=== PATIENT | male | born 1945 | race Caucasian/White ===

== ENCOUNTER → 2022-01-24 14:45 | Outpatient (BNVA) | payer MEDICARE, SELFPAY | PROVIDERS: PCP Nurse Practitioner Primary Care; Visit Provider Psychiatry & Neurology Neurology | DX: R26.9 Unspecified abnormalities of gait and mobility (principal); R42 Dizziness and giddiness; G25.9 Extrapyramidal and movement disorder, unspecified | CPT/HCPCS: 99202 ==

== ENCOUNTER → 2022-05-03 14:50 | Outpatient (BNVA) | payer MEDICARE, SELFPAY | PROVIDERS: PCP Nurse Practitioner Primary Care; Visit Provider Psychiatry & Neurology Neurology | DX: R26.9 Unspecified abnormalities of gait and mobility (principal); R42 Dizziness and giddiness; G25.9 Extrapyramidal and movement disorder, unspecified; I95.1 Orthostatic hypotension; G23.2 Striatonigral degeneration | CPT/HCPCS: 99212 ==

== ENCOUNTER → 2022-10-30 12:45 | Outpatient (BNVA) | payer MEDICARE, SELFPAY | PROVIDERS: PCP Nurse Practitioner Primary Care; Visit Provider Psychiatry & Neurology Neurology | DX: G23.2 Striatonigral degeneration (principal); I95.1 Orthostatic hypotension; R26.9 Unspecified abnormalities of gait and mobility | CPT/HCPCS: 99212 ==

== ENCOUNTER 2023-05-07 12:19 | Outpatient (AMB) | payer MEDICARE, SELFPAY ==
--- NOTE | 2023-05-07 12:37 | MHC.OFFVIS ---
Intake Vital Signs 05/07/23 12:38 Height 5 ft 8 in Weight 180 lb BMI 27.4 BP 118/68 Blood Pressure Location Rt brachial Position Sitting Respiration 16 Pulse 71 Pulse Source Pulse Oximeter Pulse Oximetry (%) 100 Oxygen Delivery Method Room Air Intake Visit Reasons: 6m follow up Parkinsons-lvm Intake Note: Pt presents to office for his 6 month follow up for Parkinson's disease. Pt states he has been stable, no worsening of symptoms.He denies tremors. Allergies adhesive tape Allergy (Mild, Verified 05/07/23 12:38) Itching HPI HPI Comments History of Present Illness Details 77y/o male comes for follow up.His ELIZABETH scan was positive for parkinsons. He still feels lightheaded No episodes of passing out. he drinks 60 - 72 oz of water a day. His constipation improved with miralax 5-6 days a week .He uses dulcolax and colace . He is doing well with current medications.No hallucinations or falls. Memory is mildly worse. He was recently found to have fluids in his left ear, his PCP is treating with zyrtec but not sure if it is helping. previous history-He had a Triple bypass surgery on Aug 20 2021.Within 2 weeks after surgery he had left leg movements in sleep and was thought that it could be parkinsons.The patient says that he has random left leg jerks . He denies any tremors. He has some memory issues. He has word finding difficulties. He had vivid dreams . Not sure if he had a REM behavior disorder.No depression or anxiety. He noticed a change in voice - softer. He used to sing and stopped 2 years ago. Occasional drooling No swallowing issues. His handwriting is slower and smaller He had 4 falls the first 2 weeks after surgery . He is good with dressing, showering , using utensils. He is slower. 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 [facility] Medical History Obstructive sleep apnea of adult Hyperlipidemia Gout Diabetes CAD (coronary artery disease) CKD (chronic kidney disease) BPH (benign prostatic hyperplasia) Atrial fibrillation Aortic atherosclerosis Surgical History S/P triple vessel bypass History of PTCA Hx of tonsillectomy Family History Mother FH: CVA (cerebrovascular accident) DM (diabetes mellitus) Father No problems noted. Maternal Grandfather No problems noted. Social History Alcohol intake: never Patient Tobacco Use Status: Never used Tobacco Physical Exam Vital Signs: Last Vital Signs Pulse 71 05/07/23 12:38 Resp 16 05/07/23 12:38 BP 118/68 05/07/23 12:38 Pulse Ox 100 05/07/23 12:38 Oxygen Delivery Method Room Air 05/07/23 12:38 BMI result Body Mass Index 27.4 Const General: cooperative, healthy appearing and comfortable Nutritional Appearance: overweight Orientation/consciousness: patient oriented x3 HEENT Head: Yes normal to inspection and Yes normocephalic Face and sinus: Yes normal facial exam Eyes Pupils: Equal, round and reactive pupils present Neck Other: antecollis Neck: Yes normal visual inspection Neuro Other: no tremors very Mild decreased facial expression and blink No tremors FFM and foot taps normal Gait stooped, mild decreased arm swing on the right mild nystagmus - on end gaze General: patient oriented x3 and moves all extremities Cranial nerves: Yes Facial sensation intact/muscles of mastication intact, Yes Equal, round and reactive pupils present, Yes Bilaterally intact EOM present, Yes Normal facial strength present and Yes Midline tongue present Speech: Other speech findings present (Neuro) (mild hypophonia) Gait exam (Neuro): Other gait observations present (stooped, slow , decreased arm swing L>R) Motor exam (neuro): 5/5 motor strength present throughout Coordination: [id number] test normal Psych Affect: normal affect Assessment & Plan Assessment & Plan (1) Orthostatic hypotension: Comment: likley due to parkinsons MSA and medications Code(s): I95.1 - Orthostatic hypotension (2) Parkinson's plus syndrome: Comment: MSA Code(s): G23.2 - Striatonigral degeneration (3) Gait disorder: Code(s): R26.9 - Unspecified abnormalities of gait and mobility Plan Monitor blood pressure Increase fluids- add sports drinks or liquid IV Continue exercise Coding Level of Care Code Est Pt Level 4 (55578) Diagnoses Orthostatic hypotension I95.1 Parkinson's plus syndrome G23.2 Gait disorder R26.9
[2023-05-07 12:38] VITALS: BP 118/68; PULSE 71; RESP 16; O2SAT 100; BMI 27.4
== END 2023-05-07 13:05 | disposition home or self-care (01) ==
PROVIDERS: Visit Provider Psychiatry & Neurology Neurology
DX: I95.1 Orthostatic hypotension (principal); G23.2 Striatonigral degeneration; R26.9 Unspecified abnormalities of gait and mobility
CPT/HCPCS: 99214

== ENCOUNTER → 2023-05-07 12:19 | Outpatient (BNVA) | payer MEDICARE, SELFPAY | PROVIDERS: Visit Provider Psychiatry & Neurology Neurology | DX: G20.A1 Parkinson's disease without dyskinesia, without mention of fluctuations (principal); I95.1 Orthostatic hypotension; G23.2 Striatonigral degeneration; R26.9 Unspecified abnormalities of gait and mobility | CPT/HCPCS: 99212 ==

== ENCOUNTER 2023-10-29 12:17 | Outpatient (AMB) | payer MEDICARE, SELFPAY ==
--- NOTE | 2023-10-29 12:23 | A.OFFVIS_ITS ---
Intake Vital Signs 10/29/23 12:24 Height 5 ft 8 in Weight 181 lb 2 oz BMI 27.5 BP 106/62 Blood Pressure Location Rt brachial Position Sitting Respiration 16 Pulse 88 Pulse Source Palpation Intake Visit Reasons: 6 mnts f/u for Parkinson's-CONF Intake Note: Pt presents to the office for a 6 month follow up for Parkinson's. Still Operator Helper Required: No Allergies adhesive tape Allergy (Mild, Verified 10/29/23 12:23) Itching HPI HPI Comments History of Present Illness Details 78y/o male comes for follow up.His ELIZABETH s can was positive for parkinsons. His lightheadedness improved. No episodes of passing out. he drinks 60 - 72 oz of water a day. He is feeling better sinc ehe marino dthe pacemaker 3 weeks ago. His constipation improved with miralax 5-6 days a week .He uses dulcolax and colace . He is doing well with current medications.No hallucinations or falls. Memory is mildly worse. Previous history-He had a Triple bypass surgery on Aug 20 2021.Within 2 weeks after surgery he had left leg movements in sleep and was thought that it could be parkinsons.The patient says that he has random left leg jerks . He denies any tremors. He has some memory issues. He has word finding difficulties. He had vivid dreams . Not sure if he had a REM behavior disorder.No depression or anxiety. He noticed a change in voice - softer. He used to sing and stopped 2 years ago. Occasional drooling No swallowing issues. His handwriting is slower and smaller He had 4 falls the first 2 weeks after surgery . He is good with dressing, showering , using utensils. He is slower. 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 [facility] Medical History (Updated 10/29/23 @ 12:39 by Connie Hahn MD) Parkinsonism Parkinson's disease with neurogenic orthostatic hypotension Obstructive sleep apnea of adult Hyperlipidemia Gout Diabetes CAD (coronary artery disease) CKD (chronic kidney disease) BPH (benign prostatic hyperplasia) Atrial fibrillation Aortic atherosclerosis Surgical History Status post biventricular cardiac pacemaker insertion S/P triple vessel bypass History of PTCA Hx of tonsillectomy Family History Mother FH: CVA (cerebrovascular accident) DM (diabetes mellitus) Father No problems noted. Maternal Grandfather No problems noted. Social History Alcohol intake: never Patient Tobacco Use Status: Never used Tobacco Physical Exam Vital Signs: Last Vital Signs Pulse 88 10/29/23 12:24 Resp 16 10/29/23 12:24 BP 106/62 10/29/23 12:24 BMI result Body Mass Index 27.5 Const General: cooperative, healthy appearing and comfortable Nutritional Appearance: overweight Orientation/consciousness: patient oriented x3 HEENT Head: Yes normal to inspection and Yes normocephalic Face and sinus: Yes normal facial exam Eyes Pupils: Equal, round and reactive pupils present Neck Other: antecollis Neck: Yes normal visual inspection Neuro Other: no tremors very Mild decreased facial expression and blink No tremors FFM and foot taps normal Gait stooped, mild decreased arm swing on the right mild nystagmus - on end gaze General: patient oriented x3 and moves all extremities Cranial nerves: Yes Facial sensation intact/muscles of mastication intact, Yes Equal, round and reactive pupils present, Yes Bilaterally intact EOM present, Yes Normal facial strength present and Yes Midline tongue present Speech: Other speech findings present (Neuro) (mild hypophonia) Gait exam (Neuro): Other gait observations present (stooped, slow , decreased arm swing L>R) Motor exam (neuro): 5/5 motor strength present throughout Coordination: [id number]-[id number] test normal Psych Affect: normal affect Assessment & Plan Assessment & Plan (1) Parkinson's plus syndrome: Comment: MSA Code(s): G23.2 - Striatonigral degeneration (2) Orthostatic hypotension: Comment: likley due to parkinsons MSA and medications Code(s): I95.1 - Orthostatic hypotension (3) Gait disorder: Code(s): R26.9 - Unspecified abnormalities of gait and mobility Plan Monitor blood pressure Increase fluids- add sports drinks or liquid IV Continue exercise Coding Level of Care Code Est Pt Level 4 (48277) Diagnoses Parkinson's plus syndrome G23.2 Orthostatic hypotension I95.1 Gait disorder R26.9
[2023-10-29 12:24] VITALS: BP 106/62; PULSE 88; RESP 16; BMI 27.5
== END 2023-10-29 12:43 | disposition home or self-care (01) ==
PROVIDERS: PCP Nurse Practitioner Primary Care; Visit Provider Psychiatry & Neurology Neurology
DX: G23.2 Striatonigral degeneration (principal); I95.1 Orthostatic hypotension; R26.9 Unspecified abnormalities of gait and mobility
CPT/HCPCS: 99214

== ENCOUNTER → 2023-10-29 12:17 | Outpatient (BNVA) | payer MEDICARE, SELFPAY | PROVIDERS: PCP Nurse Practitioner Primary Care; Visit Provider Psychiatry & Neurology Neurology | DX: G23.2 Striatonigral degeneration (principal); R26.9 Unspecified abnormalities of gait and mobility; I95.1 Orthostatic hypotension | CPT/HCPCS: 99212 ==

== ENCOUNTER 2024-11-03 13:31 | Outpatient (AMB) | payer MEDICARE, SELFPAY ==
[2024-11-03 13:32] VITALS: BP 110/72; PULSE 82; O2SAT 98; BMI 27.9
--- NOTE | 2024-11-03 13:32 | MHC.OFFVIS ---
Vital Signs 11/03/24 13:32 Height 5 ft 8 in Weight 183 lb 4 oz BMI 27.9 BP 110/72 Blood Pressure Location Rt brachial Position Sitting Pulse 82 Pulse Source Pulse Oximeter Pulse Oximetry (%) 98 Oxygen Delivery Method Room Air Intake Visit Reasons: 1 yr f/u-Conf Intake Note: Patient presents for follow up parkinsons Accompanied by: Spouse Allergies adhesive tape Allergy (Mild, Verified 11/03/24 13:32) Itching Medication List - Last Reconciled 11/03/24 by Connie Hahn MD allopurinol 300 mg PO DAILY apixaban (Eliquis) 5 mg PO BID aspirin (Adult Low Dose Aspirin) 81 mg PO DAILY atorvastatin 40 mg PO DAILY bisacodyl (Dulcolax (bisacodyl)) 10 mg PO BEDTIME cetirizine (Zyrtec) 10 mg PO DAILY PRN docusate sodium (Colace) 100 mg PO BID finasteride 5 mg PO DAILY fluticasone furoate 50 mcg/actuation inhalation metoprolol succinate ER 75 mg PO DAILY nitroglycerin 0.4 mg sublingual polyethylene glycol 3350 (Miralax) 17 grams PO DAILY potassium chloride 20 mEq PO DAILY potassium chloride ER (Klor-Con M) 20 mEq PO DAILY torsemide 10 mg PO DAILY HPI Comments Details: 79y/o male comes for follow up.His ELIZABETH scan was positive for parkinsons.He reports difficulty falling asleep and takes few hrs - 3 am He takes a 2-3 hr nap during daytime. His lightheadedness improved but still has some episodes. No episodes of passing out. he drinks 60 - 72 oz of water a day. He is feeling better since he marino dthe pacemaker 3 weeks ago. His constipation improved with miralax 5-6 days a week .He uses dulcolax and colace . He is doing well with current medications.No hallucinations or falls. Memory is mildly worse. Previous history-He had a Triple bypass surgery on Aug 20 2021.Within 2 weeks after surgery he had left leg movements in sleep and was thought that it could be parkinsons.The patient says that he has random left leg jerks . He denies any tremors. He has some memory issues. He has word finding difficulties. He had vivid dreams . Not sure if he had a REM behavior disorder.No depression or anxiety. He noticed a change in voice - softer. He used to sing and stopped 2 years ago. Occasional drooling No swallowing issues. His handwriting is slower and smaller He had 4 falls the first 2 weeks after surgery . He is good with dressing, showering , using utensils. He is slower. 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 [facility] Medical History (Updated 11/03/24 @ 14:04 by Connie Hahn MD) Insomnia Parkinsonism Parkinson's disease with neurogenic orthostatic hypotension Obstructive sleep apnea of adult Hyperlipidemia Gout Diabetes CAD (coronary artery disease) CKD (chronic kidney disease) BPH (benign prostatic hyperplasia) Atrial fibrillation Aortic atherosclerosis Surgical History Status post biventricular cardiac pacemaker insertion S/P triple vessel bypass History of PTCA Hx of tonsillectomy Family History Mother FH: CVA (cerebrovascular accident) DM (diabetes mellitus) Father No problems noted. Maternal Grandfather No problems noted. Social History Alcohol intake: never Patient Tobacco Use Status: Never used Tobacco Physical Exam Vital Signs: Last Vital Signs Pulse 82 11/03/24 13:32 BP 110/72 11/03/24 13:32 Pulse Ox 98 11/03/24 13:32 Oxygen Delivery Method Room Air 11/03/24 13:32 BMI result Body Mass Index 27.9 Const General: cooperative, healthy appearing and comfortable Nutritional Appearance: overweight Orientation/consciousness: patient oriented x3 HEENT Head: Yes normal to inspection and Yes normocephalic Face and sinus: Yes normal facial exam Eyes Pupils: Equal, round and reactive pupils present Neck Other: antecollis Neck: Yes normal visual inspection Neuro Other: no tremors very Mild decreased facial expression and blink No tremors FFM and foot taps normal Gait stooped, mild decreased arm swing on the right mild nystagmus - on end gaze General: patient oriented x3 and moves all extremities Cranial nerves: Yes Facial sensation intact/muscles of mastication intact, Yes Equal, round and reactive pupils present, Yes Bilaterally intact EOM present, Yes Normal facial strength present and Yes Midline tongue present Speech: Other speech findings present (Neuro) (mild hypophonia) Gait exam (Neuro): Other gait observations present (stooped, slow , decreased arm swing L>R) Motor exam (neuro): 5/5 motor strength present throughout Coordination: [id number] test normal Psych Affect: normal affect Assessment & Plan Assessment & Plan (1) Parkinson's plus syndrome: Comment: MSA Code(s): G23.2 - Striatonigral degeneration Category: Medical (2) Orthostatic hypotension: Comment: likley due to parkinsons MSA and medications Code(s): I95.1 - Orthostatic hypotension Category: Medical (3) Gait disorder: Code(s): R26.9 - Unspecified abnormalities of gait and mobility Category: Medical (4) Insomnia: Code(s): G47.00 - Insomnia, unspecified Category: Medical Qualifiers: Insomnia type: unspecified Qualified Code(s): G47.00 - Insomnia, unspecified Plan Monitor blood pressure Increase fluids- add sports drinks or liquid IV Continue exercise discussed sleep hygiene - avoid daytime naps - regular sleep time Coding Level of Care Code Est Pt Level 4 (06519) Complex EM visit Add On G2211 Diagnoses Parkinson's plus syndrome G23.2 Orthostatic hypotension I95.1 Gait disorder R26.9 Insomnia, unspecified type G47.00 Insomnia type: unspecified
--- OUTSIDE RECORDS SUMMARY | 2024-11-03 16:06 | XMS_ITS | Clinical Summary ---
Author Organization [facility] Address [address] [address] Phone Care Team Providers Care Indexer Name Role Phone Bianka Gutierrez DIRECTOR NICU-C Primary Care Provider + Allergies Active Allergy Reactions Criticality Noted Date Comments Adhesive Tape 09/25/2021 Medications allopurinol (ZYLOPRIM) 300 MG tablet Take 300 mg by mouth 1 (one) time each day Active metoprolol succinate XL (TOPROL XL) 50 MG 24 hr tablet Take 50 mg by mouth 1 (one) time each day Do not crush or chew. Active nitroglycerin (NITROSTAT) 0.[address] 0.4 mg under the tongue every 5 (five) minutes if needed for chest pain Active finasteride (PROSCAR) 5 MG tablet Take 5 mg by mouth daily 0 Active docusate sodium (COLACE) 100 MG capsule Take 100 mg by mouth 2 (two) times a day Active atorvastatin (LIPITOR) 40 MG tablet Take 40 mg by mouth 2 Active aspirin 81 MG chewable tablet Chew 81 mg 1 (one) time each day Active bisacodyl (DULCOLAX) 5 MG EC tablet Take 10 mg by mouth every 3 (three) days Do not crush, chew, or split. Active Multiple Vitamin (multivitamin) tablet Take 1 tablet by mouth 1 (one) time each day Active apixaban (ELIQUIS) 5 MG tablet Take 5 mg by mouth in the morning and 5 mg in the evening. 2 Active fluticasone (FLONASE) 50 MCG/ACT nasal spray Administer 1 spray into each nostril 1 (one) time each day Active cetirizine (ZyrTEC) 5 MG tablet Take 5 mg by mouth 1 (one) time each day Active KLOR-CON 20 MEQ CR tablet Take 20 mEq by mouth 1 (one) time each day Active torsemide (DEMADEX) 5 MG tablet Take 1 tablet (5 mg total) by mouth 1 (one) time each day 90 tablet 3 5 09/21/19 26 Active Active Problems Problem Noted Date Diagnosed Date Ventricular tachycardia 06/05/2024 Secondary hyperparathyroidism 02/02/2024 Sick sinus syndrome 12/03/2023 Overview (08/02/2024): Last Assessment & Plan: Patient underwent implantation of a Medtronic dual-chamber left bundle branch area pacemaker with Dr. Church 10/10/2023 after it was determined that he had a 6.9- second pause which was likely the cause of his dizziness and near syncopal episodes. He has not had any recurrent symptoms. He continues to follow routinely with our device clinic and remote monitoring. Heart failure with normal ejection fraction 11/18 Overview (08/02/2024): Last Assessment & Plan: Patient has history of HFpEF-EF 45 to 50% on last echocardiogram. He feels well and denies any clinical symptoms of heart failure. He is euvolemic on physical examination. He continues on torsemide. No changes to his present medical therapies. Patient advised to seek emergency medical attention by calling 911 if they were to develop severe dyspnea, chest pain that did not resolve with rest or nitroglycerin, or if they were to faint. I've asked the patient to call if they develop worsening symptoms of heart failure such as increased shortness of breath, new or worsening cough, increased swelling in the legs or ankles, or weight gain of more than 2 pounds in one day or 4 pounds in one week. Orthostatic hypotension 12/02/2023 Overview (08/02/2024): Last Assessment & Plan: Patient denies any issues with lightheadedness or dizziness. Blood pressure is well-controlled today. Dysphonia 07/05/2022 Overview (08/02/2024): Hoarseness; Note: Date Diagnosed: 07/05/2022 9:54 AM (R49.0) Parkinson's disease 04/19/2022 08/06/2023 History of coronary artery bypass grafting 02/0508/06/2023 Overview (08/06/2023): [place] [facility] [place] Jessica Martínez [place] [facility] [place] Doreen Verde - Indications: unstable angina Last Assessment & Plan: Patient with history of three-vessel bypass 07/2021. He continues on cardioprotective therapies including metoprolol, aspirin, and atorvastatin. He denies exertional symptoms. His last echocardiogram in February 2022 was unchanged from prior with an LVEF of 45-50%. He was experiencing neuropathy in his chest status post sternotomy. He has having no pain and we will continue to monitor. Obese class II 09/25/2021 Atherosclerotic heart diseas e of [place] coronary artery without angina pectoris 08/31/2021 Benign prostatic hyperplasia without lower urinary tract symptom 08/31/2021 Unstable angina 08/31/2021 Obstructive sleep apnea 07/23/2021 08/06/19 24 Proteinuria, not otherwise specified 11/29/2020 Abdominal aortic atherosclerosis 11/29/2020 Edema 08/30/2020 Atrial fibrillation 08/30/2020 Gout, not otherwise specified 08/30/2020 Stage 3a chronic kidney disease 08/29/2020 Type 2 diabetes mellitus wit h diabetic autonomic (poly)neuropathy 08/29/2020 Hypertension 08/29/2020 Coronary arteriosclerosis 07/11/2020 Overview (05/30/2021): Last Assessment & Plan: This has been stable, He has no signs of ischemia at this time. He will continue to work on diet and exercise. He is uptodate on his cardiovascular testing at this time. We did review his most recent echo. Resolved Problems Problem Noted Date Diagnosed Date Resolved Date Chronic constipation 04/19/2022 08/06/20232 024 High-density lipoprotein deficiency 04/19/202208/0601/30/2024 Small fiber neuropathy 04/19/2022 08/06/202301/29 History of cardiac catheterization 02/05/2022202301/30/2024 Overview (08/06/2023): [place] [facility] [place] with PHILLIP - indications: Afib, CAD, Abn Nuclear perfusion study, Crescendo angina Acute posthemorrhagic anemia 08/31/2021 02/04/2023 Encounter for surgical after care following surgery on the circulatory system 08/31/20212022 Difficulty in walking 08/31/20212022 Generalized muscle weakness 08/31/2021 01/30/2024 Hyperlipidemia 08/31/2021 02/04/2023 Other lack of coordination 08/31/2021 0 01/30/2024 Other symptoms and signs inv olving the musculoskeletal system 08/31/2021 01/30/2024 Pneumonia 08/31/2021 01/30/2024 Type 2 diabetes mellitus without complication 08/31/1901/30/2024 Dizziness 07/11/2020 08/06/2023 01/30/2024 Overview (08/06/2023): Last Assessment & Plan: We did discuss his dizziness. Its unclear what the etiology of this is. He did not worsen when we increase his metoprolol dose from 25-50. His blood pressures and heart rates have been stable. It is likely that this is due to his neuropathy as well as autonomic dysfunction from his Parkinson's. Encounters Date Type Department Care Team Description 09/20/2024 Refill [facility] [address] [phone] Dennys Mon from Last 3 Months Immunizations Immunization Administration Dates Next Due Pfizer SARS-COV-2 04/10/2021,10/18/2020,03,09/21/2020,08/31/2020 Family History Medical History Relation Comments Diabetes Mother Relation Status Comments Mother Social History Tobacco Use Types Packs/Day Years Used Date Smoking Tobacco: Never Smokeless Tobacco: Never Tobacco Cessation:Counseling Given: No Alcohol Use Standard Drinks/Week Comments Not Currently 0 (1 standard drink = 0.6 oz pur e alcohol) Sex and Gender Information Value Date Recorded Sex Assigned at Male 11/28/2020 1:43 PM EDT Legal Sex Male 4:58 PM EST Gender Identity Male 11/28/2020 1:43 PM EDT Sexual Orientation Straight 11/28/2020 1: 43 PM EDT Last Filed Vital Signs Vital Sign Reading Time Taken Comments Blood Pressure 116/85 08/02/2024 9:45 AM EST Pulse 84 08/02/2024 9:45 AM EST Temperature - - Respiratory Rate - - Oxygen Saturation 99% 02/02/2024 10:47 AM EDT Inhaled Oxygen Concentration - - Weight 80.3 kg (177 lb) 08/02/2024 9:45 AM EST Height 172.7 cm (5' 8 ) 08/02/2024 9:45 AM EST Body Mass Index 26.91 08/02/2024 9:45 AM EST Plan of Treatment Upcoming Encounters Date Type Department Care Team (Late st Contact Info) Description 01/31/2025 10:00 AM EDT Office Visit [facility] [address] [phone] Con Rosa MD [address] [phone] Health Maintenance Due Date Last Done Comments Pneumococcal Vaccine: 50+ Ye ars (1 of 2 - PCV) 10/26/1964 Diabetes: Hemoglobin A1C 08/29/2020 Diabetes: Ophthalmology Exam 08/29/2020 Diabetes: Pedal Pulse Checked 08/29/2020 Diabetes: Sensory Foot Exam 08/29/2020 Diabetes: Visual Foot Exam 08/29/2020 Influenza Vaccine (Season Ended) 2025 Hepatitis B Vaccine Aged Out No longe r eligible based on patient's age to complete this topic Insurance [facility] Care Teams Indexer Relationship Specialty Start Date End Date Bianka Gutierrez NP-C [address], [address] [place] [address] PCP - General Nurse Practitioner 08/30/20
--- OUTSIDE RECORDS SUMMARY | 2024-11-03 16:07 | XMS_ITS | Continuity of Care Document ---
Author Organization [facility] [address] [facility] [address] [place] [address] Phone [phone] Care Team Providers Care Swimming Pool Cleaner Name Role Phone Bianka Gutierrez N.P. Care Team Information [facility] [phone] Problems Active Problems Provider Date Essential hypertension Nathalia Crawford Onset: 04/19/2022 Type 2 diabetes mellitus Daisy Weiss M.D. Onset: 04/19/2022 Coronary atherosclerosis Daisy Weiss M.D. Onset: 04/19/2022 Atrial fibrillation Daisy Weiss M.D. Onset: 04/19/2022 Chronic kidney disease stage 3 Daisy roca M.D. Onset: 04/19/2022 Small fiber neuropathy Nathalia Crawford Onset: 04/19/2022 Chronic constipation Beck Crawford Onset: 04/19/2022 Benign prostatic hyperplasia Daisy delacruz M.D. Onset: 04/19/2022 Parkinson's disease Daisy Weiss M.D. Onset: 04/19/2022 Gout Daisy Weiss M.D. Ons et: 04/19/2022 Proteinuria Daisy Weiss M.D. Ons et: 04/19/2022 Obesity Daisy Weiss M.D. Ons et: 04/19/2022 Obstructive sleep apnea syndrome Daisy Ching M.D. Onset: 04/19/2022 High density lipoprotein deficiency Daisy Shah M.D. Onset: 04/19/2022 Social History Type Date Description Comments Sex Unknown Lives With Spouse Occupation insurance sales professional Work Status Retired Tobacco Use Start: Unknown Never Smoked Cigarettes ETOH Use Never used alcohol Allergies and adverse reactions Description No Known Drug Allergies Medications Active Medications SIG Qnty Indications Order ing Provider Date Onetouch VerioStrips use 1 strip to check glucose 1 time weekly DX:E11.9 50units E11.9 Daisy Weiss M.D. 09/11/2023 Onetouch Delica Plus Lancets Extra Fine 33GPlus 33G [facility] use one to test blood sugars once weekly DX: E11.9 50units E11.9 Daisy Weiss M.D. 09/11/2023 Hhkgqkelose7eo Tablets 1 by mouth every day Unknown Kjckrsl6jk Tablets 1 by mouth twice a day Brian Cavazos Potassium ChlorideCrystals 20 meq qd Daisy Weiss M.D. Sixbwhkflfx199af Tablets 1 tab by mouth every morning 90tabs Daisy Weiss M.D. Aspirin Ec Low Ygda08sf Tablets DR Multani by mouth every day Daisy Weiss M.D. Luseli139tc Capsules 1 by mouth bid Daisy Weiss M.D. Multivitamin Adults 50+Adlt 50+ Tablets 1 by mouth every day Daisy Weiss M.D. Skmaxop73UC/Scoop Powder take daily Daisy Weiss M.D. Iuocbzka9mt Tablets 1 by mouth every 3rd day Daisy Weiss M.D. Atorvastatin Brygbik25rw Tablets 1 by mouth every day Daisy Weiss M.D. Metoprolol Succinate ER50mg Tablets ER 24HR 1 by mouth every day 90tabs Daisy Weiss M.D. Fhsefzuie7yl Tablets 1 by mouth every day Daisy Weiss M.D. Zyrtec Yzkwesj64lu Tablets 1 by mouth every day at bedtime Daisy Weiss M.D. Flonase Allergy Xdnsgj21aus/Act Suspension 1 pump both nostrils twice a day as needed 9.900ml Daisy Weiss M.D. Vital Signs Date Vital Result Comment 2023 8:36am BP Systolic 112 mmHg BP Diastolic 78 mmHg Results Test Acquired Date Facility Test Result H/L Range N ote Glucose Fingerstick 2023 Inhouse Glucose Fingerstick 85 Hemoglobin A1c 2023 Inhouse Hemoglobin A1c 5.1% Glucose Fingerstick 04/24/2023 Inhouse Glucose Fingerstick 89 Hemoglobin A1c 04/24/2023 Inhouse Hemoglobin A1c 5.6% Glucose Fingerstick 12/27/2022 Inhouse Glucose Fingerstick 130 Glucose Fingerstick 10/18/2022 Inhouse Glucose Fingerstick 96 Hemoglobin A1c 10/18/2022 Inhouse Hemoglobin A1c 5.6% Glucose Fingerstick 04/19/2022 Inhouse Glucose Fingerstick 111 Hemoglobin A1c 04/19/2022 Inhouse Hemoglobin A1c 5.5% Medical Devices Description No Information Available Encounters Type Date Location Provider Dx Diagnosis Office Visit 2023 8:00a Main Office Daisy Weiss M.D. E11.42 Type 2 diabetes mellitus with diabetic polyneuropathy I10 Essential (primary) hypertension N18.31 Chronic kidney disea se, stage 3a Assessments Date Code Description Provider 2023 E11.42 Type 2 diabetes mellitus with diabetic polyneuropathy Daisy Weiss M.D. 2023 I10 Essential (primary) hyperten sammy Daisy Weiss M.D. 2023 N18.31 Chronic kidney disease, stag e 3a Daisy Weiss M.D. Plan of Treatment Future Appointment(s):* 12/17/2024 9:00 am - Daisy Weiss M.D. at Main Office 2023 - Daisy Weiss M.D.* E11.42 Type 2 diabetes mellitus with diabetic polyneuropathy * I10 Essential (primary) hypertension * N18.31 Chronic kidney disease, stage 3a Functional Status Description No Information Available Mental Status Description No Information Available Referrals Description No Information Available
--- OUTSIDE RECORDS SUMMARY | 2024-11-03 16:07 | XMS_ITS ---
Author Organization [facility] Care Team Providers Care Site Administrator Name Role Phone Wandy Echols Unavailable Unavailable Janet Wagner Unavailable Unavailable Breana Adame Unavailable Unavailable Allergies and adverse reactions Code CodeSystem Substance Reaction Severity StartDate Concern Status Adhesive Tape Unknown 08/31/2021 active Care Team Name Role Address Phone Organization Dates Janet Wagner PCP [address] [facility] [address], [place], [address], [place] (Office): [facility] 08/31/2021 - 09/08/2021 Wandy Echols Attending Physician [address] [address], [place], [address], [place] (Office): [facility] 08/31/2021 - 09/08/2021 Breana Adame Attending Physician [address] [facility] [address], [place], [address], [place] (Office): [facility] 08/31/2021 - 09/08/2021 Immunizations Immunization Status Vaccine Details Vaccine Code CodeSystem Date Notes SARS-COV-2 (COVID-19) completed SARS-COV-2 (COVID-19) vaccine, mRNA, spike protein, LNP, preservative free, 30 mcg/0.3mL dose Mfg: [employer] Step 1 of Multi-step 208 CVX created date: 08/31/2021 administere d date: 04/10/2021 Booster vaccine SARS-COV-2 (COVID-19) completed SARS-COV-2 (COVID-19) vaccine, mRNA, spike protein, LNP, preservative free, 30 mcg/0.3mL dose Mfg: [employer] Step 2 of Multi-step with next step required 208 CVX created date: 08/31/2021 administere d date: 10/18/2020 SARS-COV-2 (COVID-19) completed SARS-COV-2 (COVID-19) vaccine, mRNA, spike protein, LNP, preservative free, 30 mcg/0.3mL dose Mfg: [employer] Step 1 of Multi-step with next step required 208 CVX created date: 08/31/2021 administere d date: 09/27/2020 Mental Status Section Date Assessment Total Score Description 09/08/2021 BIMS 15 cognitively int act CAM 0 No delirium ind icated PHQ-9 01 minimal depress ion 09/05/2021 BIMS 15 cognitively int act CAM 0 No delirium ind icated PHQ-9 01 minimal depress ion Problems Problem # Description Date of onset Resolved Date Code CodeSystem Concern Status 1 ACUTE POSTHEMORRHAGIC ANEMIA 08/31/[address] active 2 ATHEROSCLEROTIC HEART DISEASE OF [place] CORONARY ARTERY WITHOUT ANGINA PECTORIS 08/31/[address] active 3 BENIGN PROSTATIC HYPERPLASIA WITHOUT LOWER URINARY TRACT SYMPTOMS 08/31/[address] active 4 CHRONIC KIDNEY DISEASE, STAGE 3A 08/31/[address] active 5 DIFFICULTY IN WALKING, NOT ELSEWHERE CLASSIFIED 08/31/[address] active 6 ENCOUNTER FOR OTHER SPECIFIED SURGICAL AFTERCARE 08/31/[address] active 7 ENCOUNTER FOR SURGICAL AFTERCARE FOLLOWING SURGERY ON THE CIRCULATORY SYSTEM 08/31/[address] active 8 ESSENTIAL (PRIMARY) HYPERTENSION 08/31/[address] active 9 HYPERLIPIDEMIA, UNSPECIFIED 08/31/[address] active 10 MUSCLE WEAKNESS (GENERALIZED) 08/31/[address] active 11 OTHER LACK OF COORDINATION 08/31/[address] active 12 OTHER SYMPTOMS AND SIGNS INVOLVING THE MUSCULOSKELETAL SYSTEM 08/31/[address] active 13 PNEUMONIA, UNSPECIFIED ORGANISM 08/31/[address] active 14 TYPE 2 DIABETES MELLITUS WITHOUT COMPLICATIONS 08/31/[address] active 15 UNSPECIFIED ATRIAL FIBRILLATION 08/31/[address] active 16 UNSTABLE ANGINA 08/31/[address] active Reason for Referral No Reasons for Referral Entered Social History Social History Observation Description Start Date End Date Code Code System Current Smoking Status Tobacco smoking consumption unknown 190272623 SNOMED CT Sex Assigned At Male 1945 13450-4 [facility] Vital Signs Code Code System Vitals Name Values and Units Timing Information 8462-4 [facility] Blood Pressure-Diastolic Value=69 Un its=mmHg 09/08/2021 8480-6 [facility] Blood Pressure-Systolic Qiauh=205 Un its=mmHg 09/08/2021 9279-1 [facility] Respiratory Rate Value=16.0 Units=/m in 09/08/2021 8310-5 [facility] Body Temperature Value=97.4 Units=?? F 09/08/2021 8867-4 [facility] Heart rate Value=80.0 Units=/min 16442-1 [facility] O2 % dC Oximetry Value=94.0 Units= % 09/08/2021 38774-7 [facility] Pain Level Value=0.0 09/08/2021 2339-0 [facility] Blood Sugar Value=98.0 Units=mg/dL 09/08/2021 87939-9 [facility] Weight Fbvtj=674.6 Units=Lbs 8302-2 [facility] Height Value=68.0 Units=Inches 09/03/2021
--- OUTSIDE RECORDS SUMMARY | 2024-11-03 16:07 | XMS_ITS | Data Portability ---
Author Organization [place] - [facility], Allergy Address [address] [address] Care Team Providers Care Financial Data Analyst Name Role Phone PETERLAURO ESPARZAINE Primary Care Provider Assessment Encounter Date Assessment Date Assessment LastModified by Organization Details LastModified Time 01/19/2024 01/19/2024 Patient's hearing remains essentially stable but devices were reprogrammed anywhere the thresholds were 5 dB worse. Recommend following up in one year for their annual hearing aid fitting, sooner if any problems arise. [email or web address] Not available 01/19/2024 14:11:24 Plan of Treatment Reminders Order Date Submit Date Provider Last Modified By Organization Details Last Modified Time Details Appointments None record ed. Lab None record ed. Referral None record ed. Procedures None record ed. Surgeries None record ed. Imaging None record ed. Medication Orders None record ed. Patient TargetsNo targets recorded. Patient InstructionsNo instructions recorded. Reason for Referral None Reported. Results Created Date Observation Date Name Description Value Unit Range Abnormal Flag Note LastModifiedBy Organization Detail LastModifiedTime 01/19/20 audio gram No observ ation record ed. BARCODE Not Available 2023 15:12:44 03/09/20 24 08/14/2022 imagi ng/di agnos tic resul t No observ ation record ed. [email or web address] Not Available 23:54:40 03/09/20 24 08/14/2022 imagi ng/di agnos tic resul t No observ ation record ed. [email or web address] Not Available 23:54:47 03/09/20 24 04/27/2019 audio gram No observ ation record ed. [email or web address] Not Available 23:55:59 03/09/20 24 05/01/2022 imagi ng/di agnos tic resul t No observ ation record ed. [email or web address] Not Available 23:56:05 03/09/20 24 03/31/2020 audio gram No observ ation record ed. [email or web address] Not Available 23:56:56 03/09/20 24 04/27/2019 audio gram No observ ation record ed. [email or web address] Not Available 23:57:02 03/09/20 24 05/01/2022 audio gram No observ ation record ed. [email or web address] Not Available 23:57:03 Result Notes None recorded. 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 Other diseases of vocal cords; Note: Date Diagnosed : 2 9:54 AM (J38.3) Not Available [facility] 4 03:04:06 Bilateral tinnitus 89672318821 02 Active 2017 Tinnitus, bilateral ; Note: Date Diagnosed : 03/11/2018 11:09 AM (H93.13) Not Available [facility] 4 03:04:06 Dysphonia 73117498 Active 2021 Hoarsenes s; Note: Date Diagnosed : 2 9:54 AM (R49.0) Not Available [facility] 4 03:04:03 Snoring 50181414 Active 2017 Snoring; Note: Date Diagnosed : 03/11/2018 11:09 AM (R06.83) Not Available [facility] 4 03:04:05 Sensorine ural hearing loss of bilateral ears 070793406 Active 2017 Sensorine ural hearing loss, bilateral ; Note: Date Diagnosed : 03/11/2018 10:57 AM (H90.3) Not Available [facility] 4 03:04:05 Parkinson 's disease 78272338 Active 2021 Parkinson 's disease; Note: Date Diagnosed : 2 9:54 AM (G20) Not Available [facility] 4 03:04:04 Bleeding from nose 372931787 Active 2020 Epistaxis ; Note: Date Diagnosed : 09/15/2020 5:04 PM (R04.0) Not Available [facility] 4 03:04:04 Problem Notes None recorded. Procedures Surgical History Date Name Laterality Status Provider Name and Address Organization Details Recorded Time 01/19/2024 Comp Audio with Tymps (78852 & 55383) completed GREGORY WOLFE, [facility] [address] [facility],[address] [address], [place], [address], [facility] - [facility] 01/19/2024 14:10:48 Imaging Results Imaging Date Name Status LastModified by Organiz ation Details LastModified Time 01/19/2024 audiogram completed BARCODE Information no t available 01/19/2024 15:12:44 08/14/2022 imaging/diagno stic result completed Information not available 03/09/2024 23:54:40 08/14/2022 imaging/diagno stic result completed Information not available 03/09/2024 23:54:47 04/27/2019 audiogram completed Information not available 03/09/2024 23:55:59 05/01/2022 imaging/diagno stic result completed Information not available 03/09/2024 23:56:05 03/31/2020 audiogram completed Information not available 03/09/2024 23:56:56 04/27/2019 audiogram completed Information not available 03/09/2024 23:57:02 05/01/2022 audiogram completed Information not available 03/09/2024 23:57:03 Procedure Notes None recorded. Medical Equipment None Reported. Medications Name Sig Start Date Stop Date Status Note LastModified by Organization Details LastModified Time atorvasta tin 40 mg tablet active Medicatio n ID: [id number] Br and Name: atorvasta tin Send Method: E-Prescri bed Subs Allowed: subs OK Medica tionGener icName: atorvasta tin Not Available Not Available Not Available Toprol XL 100 mg tablet,ex tended release 09/15 completed Medicatio n ID: [id number] Du ration Value: 90 Brand Name: Toprol XL Send Method: E-Prescri bed Subs Allowed: subs OK Medica tionGener icName: Toprol XL Not Available Not Available Not Available torsemide 20 mg tablet active Medicatio n ID: [id number] Br and Name: torsemide Send Method: E-Prescri bed Subs Allowed: subs OK Medica tionGener icName: torsemide Not Available Not Available Not Available ciproflox acin 750 mg tablet TAKE 1 TABLET BY MOUTH TWICE A DAY FOR 7 DAYS active Not Available Not Available No t Available atorvasta tin 10 mg tablet 07/05 completed Medicatio n ID: [id number] Br and Name: atorvasta tin Send Method: E-Prescri bed Subs Allowed: subs OK Medica tionGener icName: atorvasta tin Not Available Not Available Not Available metoprolo l succinate ER 50 mg tablet,ex tended release 24 hr active Not Available Not Available Not Available warfarin 2.5 mg tablet 09/15 completed Medicatio n ID: [id number] Du ration Value: 90 Brand Name: warfarin Send Method: E-Prescri bed Subs Allowed: subs OK Medica tionGener icName: warfarin Not Available Not Available Not Available amlodipin e 2.5 mg tablet 09/15 completed Medicatio n ID: [id number] Du ration Value: 90 Brand Name: amlodipin e Send Method: E-Prescri bed Subs Allowed: subs OK Medica tionGener icName: amlodipin e Not Available Not Available Not Available amlodipin e 5 mg tablet 07/05 completed Medicatio n ID: [id number] Br and Name: amlodipin e Send Method: E-Prescri bed Subs Allowed: subs OK Medica tionGener icName: amlodipin e Not Available Not Available Not Available isosorbid e mononitra te ER 60 mg tablet,ex tended release 24 hr 07/05 completed Medicatio n ID: [id number] Br and Name: isosorbid e mononitra te Send Method: E-Prescri bed Subs Allowed: subs OK Medica tionGener icName: isosorbid e mononitra te Not Available Not Available Not Available potassium chloride 20 mEq oral packet active Not Available Not Available Not Available tamsulosi n 0.4 mg capsule 07/05 completed Medicatio n ID: [id number] Br and Name: tamsulosi n Send Method: E-Prescri bed Subs Allowed: subs OK Specia l Instructi on: TAKE 1 CAPSULE BY MOUTH EVERY DAY HALF HOUR FOLLOWING THE SAME MEAL EVERY DAY Medic ationGene ricName: tamsulosi n Not Available Not Available Not Available torsemide 5 mg tablet TAKE 1 TABLET BY MOUTH EVERY DAY active Not Available Not Available No t Available nitroglyc nicolasa 0.4 mg sublingua l tablet 07/05 completed Medicatio n ID: [id number] Br and Name: nitroglyc nicolasa Send Method: E-Prescri bed Subs Allowed: subs OK Specia l Instructi on: PLACE 1 TAB UNDER THE TONGUE EVERY 5 MINUTES NEEDED FOR CHEST PAIN. Med icationGe nericName : nitroglyc nicolasa Not Available Not Available Not Available lisinopri l 30 mg tablet 07/05 completed Medicatio n ID: [id number] Br and Name: lisinopri l Send Method: E-Prescri bed Subs Allowed: subs OK Medica tionGener icName: lisinopri l Not Available Not Available Not Available allopurin ol 300 mg tablet active Not Available Not Available Not Available metformin ER 500 mg tablet,ex tended release 24 hr 07/05 completed Medicatio n ID: [id number] Br and Name: metformin Send Method: E-Prescri bed Subs Allowed: subs OK Medica tionGener icName: metformin Not Available Not Available Not Available doxycycli ne hyclate 100 mg tablet TAKE 1 TABLET BY MOUTH TWICE A DAY FOR 10 DAYS active Not Available Not Available No t Available finasteri de 5 mg tablet active Not Available Not Available Not Available Klor-Con M20 mEq tablet,ex tended release active Not Available Not Available Not Available OneTouch Verio test strips active Not Available Not Available Not Available Eliquis 5 mg tablet active Not Available Not Available No t Available OneTouch Delica Plus Lancet 33 gauge active Not Available Not Available Not Available aspirin 81 mg capsule active Medicatio n ID: [id number] Br and Name: aspirin S end Method: E-Prescri bed Subs Allowed: subs OK Medica tionGener icName: aspirin Not Available Not Available Not Available Vitals None Recorded Social History None recorded. Functional Status None recorded. Mental Status None recorded. Family History Nothing Reported. Medical History No medical history recorded. Past Encounters Encounter ID Performer Location Encounter Start Date Encounter Closed Date Diagnosis/Indication Diagnosis SNOMED-CT Code Diagnosis ICD10 Code Diagnosis Note [id number] Cely JENKINS [facility] of [address] [address] 01/19/2024 14:07:36 01/27/2024 20:44:08 Sensorineural hearing loss of bilateral ears 820007121 H90.3 Health Concerns Section Related Observation LastModified by Organization Detai ls LastModified Time None Recorded Concern Status LastModified by Organization Details LastModified Time None Recorded Advance Directives Directive None Recorded Payers Encounter Date Sequence Insurance Name Policy Number Policy Machado Covered Member ID Machado Member ID Guarantor Name 01/19/2024 1 [facility]: MEDICARE PPO BLUE (MEDICARE REPLACEMENT PPO) [id number] Elbert Weber [id number] Elbert Weber Notes Date Note Type Note Provider Name and Address Organization Details Recorded Time 01/19/2024 text/html Patient returns for their annual fitting of amplification. Reviewed with patient the importance of ensuring that the devices are working to their best potential and to rule out any changes in hearing or need to reprogram the devices. The devices were previously programmed using the Audioscan [email or web address].comifit hearing aid analyzer and real-ear verification was not repeated today. The patient reported no specific concerns and reports satisfaction with use but his family reports that he struggles hearing them. His PCP has put him on Zyrtec and Flonase for allergies. The last time he saw his PCP (weeks ago), he was told he had a little fluid in the left ear. Cely JENKINS [address], [address], [facility] - [facility] 01/19/2024 14:11:51
--- OUTSIDE RECORDS SUMMARY | 2024-11-03 16:07 | XMS_ITS | Encounter Summary ---
Author Organization [facility] Address [address] [place] [address] Care Team Providers Care Induction Machine Setter Name Role Phone Bianka Gutierrez CATEGORY DEVELOPMENT ANALYST Primary Care Provider [phone] Reason for Visit * Reason Onset Date Comments eliquis 10/20/2024 eliquis Encounter Details Date Type Department Care Team (Late st Contact Info) Description 10/20/2024 Telephone [facility] [address] [place] [address] [place] [address] Irene Reeves NP [address] [place] [address] [address] [place], [place] [phone] eliquis (eliquis) Social History Tobacco Use Types Packs/Day Years Used Date Smoking Tobacco: Never Smokeless Tobacco: Never Alcohol Use Standard Drinks/Week Comments Not Currently 0 (1 standard drink = 0.6 oz pur e alcohol) Sex and Gender Information Value Date Recorded Sex Assigned at Not on file Legal Sex Male 11:18 PM EST Gender Identity Not on file Sexual Orientation Not on file documented as of this encounter Progress Notes * Buffy Salinas RN - 10/20/2024 4:00 PM EDT VIKTOR 08/05/24, next 11/18/24 Eliquis refills were sent in yesterday to [facility]. * Jeannette Rebeca - 10/20/2024 3:47 PM EDT Pt called for a refill on apixaban (Eliquis) 5 mg tablet , Take 1 tablet (5 mg total) by mouth 2 (two) times a day. Sent to [facility] He has one week left Ariana documented in this encounter Plan of Treatment Upcoming Encounters Date Type Department Care Team (Late st Contact Info) Description 11/09/2024 2:30 PM EDT Ancillary Procedure [facility] [address] [facility] [address] [place] [address] 11/18/2024 9:10 AM EDT Office Visit [facility] [address] [place] [address] [address] [place] [address] Irene Reeves NP [address] [place] [address] Dr [address] [place] [address] documented as of this encounter Visit Diagnoses Not on filedocumented in this encounter Care Teams Induction Machine Setter Relationship Specialty Start Date End Date Bianka Gutierrez NP [address] [place] [address] PCP - General Nurse Practitioner 06/04/24 documented as of this encounter
--- OUTSIDE RECORDS SUMMARY | 2024-11-03 16:07 | XMS_ITS | Encounter Summary ---
Author Organization [facility] Address [address] [facility] [address] [place] [address] Phone Care Team Providers Care Knowledge Management Consultant Name Role Phone Bianka Gutierrez HAND LAUNDERER-C Primary Care Provider + Encounter Details Date Type Department Care Team (Late st Contact Info) Description 11/27/2020 Orders Only [facility] [address] [facility] [address] [place] [phone] Con Rosa MD [address] [facility] [address] [place] [phone] 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 No / Unsure 11/29/2020 10:54 AM EDT documented as of this encounter Plan of Treatment Upcoming Encounters Date Type Department Care Team (Late st Contact Info) Description 01/31/2025 10:00 AM EDT Office Visit [facility] 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) Essential (primary) hypertension Stage 3b chronic kidney disease (HCC) Gout due to renal impairment, unspecified ankle and foot Atrial fibrillation, not otherwise specified (HCC) Localized edema CBC AND DIFFERENTIAL Routine 11/20/2020 9:57 AM EDT 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) Essential (primary) hypertension Stage 3b chronic kidney disease (HCC) Gout due to renal impairment, unspecified ankle and foot Atrial fibrillation, not otherwise specified (HCC) Localized edema URIC ACID Routine 11/20/2020 9:57 AM EDT 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) Essential (primary) hypertension Stage 3b chronic kidney disease (HCC) Gout due to renal impairment, unspecified ankle and foot Atrial fibrillation, not otherwise specified (HCC) Localized edema PTH, INTACT Routine 11/20/2020 9:57 AM EDT 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) Essential (primary) hypertension Stage 3b chronic kidney disease (HCC) Gout due to renal impairment, unspecified ankle and foot Atrial fibrillation, not otherwise specified (HCC) Localized edema MAGNESIUM Routine 11/20/2020 9:57 AM EDT 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) Essential (primary) hypertension Stage 3b chronic kidney disease (HCC) Gout due to renal impairment, unspecified ankle and foot Atrial fibrillation, not otherwise specified (HCC) Localized edema RENAL FUNCTION PANEL Routine 11/20/2020 9:57 AM EDT 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) Essential (primary) hypertension Stage 3b chronic kidney disease (HCC) Gout due to renal impairment, unspecified ankle and foot Atrial fibrillation, not otherwise specified (HCC) Localized edema PROTEIN / CREATININE RATIO, URINE Routine 11/20/2020 7:00 AM EDT 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) Essential (primary) hypertension Stage 3b chronic kidney disease (HCC) Gout due to renal impairment, unspecified ankle and foot Atrial fibrillation, not otherwise specified (HCC) Localized edema documented in this encounter Results * Vitamin D 25 Hydroxy (11/20/2020 9:57 AM EDT) Vitamin D, 25-Hydroxy 35.9 (20-50) NG/ML [facility] Comment: Testing performed or reported by [facility], a Service of [facility], [address] [place] [address] Gala Bradley MD, Machine Assembler Blood (Blood, Venous) 11/20/2020 9:57 AM EDT 11/20/2020 9:59 AM EDT us Con Rosa MD LAB BLOOD ORDERABLES Final Re sult Performing Organization Address [facility] de Phone Number [facility] * Uric Acid (11/20/2020 9:57 AM EDT) Pathologist [facility] Uric Acid 5.4 (2.6-8.7) MG/DL [facility] Comment: Testing performed or reported by [facility], a Service of [facility], [address] [place] [id number] Gala Bradley MD, Machine Assembler Blood (Blood, Venous) 11/20/2020 9:57 AM EDT 11/20/2020 9:59 AM EDT us Con Rosa MD LAB BLOOD ORDERABLES Final Re sult Performing Organization Address [facility]/ZIP Co de Phone Number [facility] * (ABNORMAL) Renal Function Panel (11/20/2020 9:57 AM EDT) Glucose 103(H) (70-99) MG/DL [facility] BUN 25(H) (8-23) MG/DL [facility] Creatinine 1.5(H) (0.7-1.2) MG/DL [facility] Sodium 143 (133-145) MMOL/L [facility] Potassium 4.0 (3.6-5.2) MMOL/L [facility] Chloride 104 (98-107) MMOL/L [facility] Bicarbonate (CO2) 28 (22-29) MMOL/L [facility] Anion Gap 11 (4-17) [facility] Albumin 4.5 (3.4-4.8) GM/DL [facility] Calcium 9.5 (8.6-10.5) MG/DL [facility] Phosphorus, Serum 3.3 (2.5-4.5) MG/DL [facility] Est GFR Non 46 ML/MIN/1.7 3 M2 [facility] Comment: Creatinine based estimated glomerular filtration rate (eGFR) is calculated using the Chronic Kidney Disease Epidemiology Collaboration (CKD-EPI). The CKD-EPI creatinine equation has not been validated in children (<18 years), women or in some racial or ethnic subgroups other than Caucasians and Americans. EST GFR 53 ML/MIN/1.7 3 M2 [facility] Comment: Creatinine based estimated glomerular filtration rate (eGFR) is calculated using the Chronic Kidney Disease Epidemiology Collaboration (CKD-EPI). The CKD-EPI creatinine equation has not been validated in children (<18 years), women or in some racial or ethnic subgroups other than Caucasians and Americans. Testing performed or reported by [facility], a Service of [facility], [address] [place] [id number] Gala Bradley MD, Machine Assembler Blood (Blood, Venous) 11/20/2020 9:57 AM EDT 11/20/2020 9:59 AM EDT us Con Rosa MD LAB BLOOD ORDERABLES Final Re sult Performing Organization Address [facility] Co de Phone Number [facility] * (ABNORMAL) PTH, Intact (11/20/2020 9:57 AM EDT) [facility] PTH, Intact 114(H) (15-65) PG/ML [facility] Comment: Testing performed or reported by [facility], a Service of [facility], [address] [place] [id number] Gala Bradley MD, Machine Assembler Blood (Blood, Venous) 11/20/2020 9:57 AM EDT 11/20/2020 9:59 AM EDT Con Rosa MD LAB BLOOD ORDERABLES Final Re sult Performing Organization Address [facility] de Phone Number [facility] * Magnesium (11/20/2020 9:57 AM EDT) [facility] Magnesium 1.8 (1.6-2.3) mg/dL [facility] Comment: Testing performed or reported by [facility], a Service of [facility], [address] [place] [id number] Gala Bradley MD, Machine Assembler Blood (Blood, Venous) 11/20/2020 9:57 AM EDT 11/20/2020 9:59 AM EDT Con Rosa MD LAB BLOOD ORDERABLES Final Re sult Performing Organization Address [facility] de Phone Number [facility] * (ABNORMAL) CBC and Differential (11/20/2020 9:57 AM EDT) [facility] White Blood Cells 6.5 (4.0-11.0) K/MM3 [facility] RBC 4.68(L) (4.70-6.10 ) M/MM3 [facility] Hgb 15.1 (13.7-17.1 ) GM/DL [facility] Hematocrit 46.0 (40.5-50.0 ) % [facility] MCV 98.3(H) (80.0-94.0 ) [place] [facility] MCH 32.3 (27.0-34.0 ) PG [facility] MCHC 32.8(L) (33.0-37.0 ) g/dL [facility] Platelets 191 (150-460) K/MM3 [facility] RDW-SD 47.1(H) (<47.0) [place] [facility] MPV 10.9 (9.4-12.4) [place] [facility] nRBC Count 0.0 #/100 WBC'S [facility] NRBC Absolute 0.0 K/MM3 [facility] Neutrophils Abs Auto 3.5 (1.3-7.0) K/MM3 [facility] Lymphocytes Relative 2.3 (0.8-3.1) K/MM3 [facility] Monocytes 0.5 (0.4-1.3) K/MM3 [facility] Eosinophils Relative 0.2 (0.0-0.4) K/MM3 [facility] Basophil ABS 0.1 (0.0-0.1) K/MM3 [facility] Granulocytes Absolute 0.0 K/MM3 [facility] Neutrophils % Auto 53.5 (44-76) % [facility] Lymphs 34.4 (15-43) % [facility] Monocytes Absolute 7.8 (4.5-10.5) % [facility] Eosinophils 2.9 (0-6) % [facility] Basophils Relative 1.1 (0-2) % [facility] Immature Granulocytes 0.3 % [facility] Comment: Testing performed or reported by [facility], a Service of [address] [address] Gala Bradley MD, Machine Assembler Blood (Blood, Venous) 11/20/2020 9:57 AM EDT 11/20/2020 9:59 AM EDT us Con Rosa MD LAB BLOOD ORDERABLES Final Re sult [facility] * Protein, Total, Random Urine w/Creatinine (Protein/Creat Ratio) (11/20/2020 7:00 AM EDT) Protein/Creatin e Ratio 0.11 (0-0.2) [facility] Protein, Urine 5 MG/DL [facility] Creatinine, Urine 43.5 MG/DL [facility] Comment: Testing performed or reported by [facility], a Service of [address] [address] Gala Bradley MD, Machine Assembler Urine (Urine, Clean Catch) 11/20/2020 7:00 AM EDT 11/20/2020 10:00 AM EDT us Con Rosa MD LAB URINE ORDERABLES Final Re sult [facility] documented in this encounter Visit Diagnoses Diagnosis 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
--- OUTSIDE RECORDS SUMMARY | 2024-11-03 16:07 | XMS_ITS | Clinical Summary ---
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 Active fluticasone propionate (FLONASE) 50 mcg/actuation nasal spray Administer 1 spray into affected nostril(s) 1 (one) time each day. Active aspirin 81 mg EC tablet Take 1 tablet (81 mg total) by mouth 1 (one) time each day. Active allopurinoL (ZYLOPRIM) 300 mg tablet Take 1 tablet (300 mg total) by mouth 1 (one) time each day. Active torsemide (DEMADEX) 5 mg tablet Take 1 tablet (5 mg total) by mouth 1 (one) time each day. 05/15/20 23 Active docusate sodium (COLACE) 100 mg capsule Take 1 capsule (100 mg total) by mouth 1 (one) time each day. Active MULTIVITAMIN ORAL Take 1 tablet by mouth 1 (one) time each day. Active potassium chloride (KLOR-CON M20) 20 mEq CR tablet Take 1 tablet (20 mEq total) by mouth 1 (one) time each day. Tablet may be swallowed whole (do not crush/chew/suc k on) OR broken in half and each half swallowed separately OR dissolved (whole tablet) in ~4 ounces of water (allow ~2 minutes to dissolve, stir well and administer immediately). Active bisacodyL (DULCOLAX) 5 mg EC tablet Take 2 tablets (10 mg total) by mouth 1 (one) time each day if needed for constipation. Do not crush, chew, or split. Active polyethylene glycol (PEG) 17 gram/dose oral powder Take 17 g by mouth 1 (one) time each day. Active finasteride (PROSCAR) 5 mg tablet Take 1 tablet (5 mg total) by mouth 1 (one) time each day. Do not crush, chew, or split. Active atorvastatin (LIPITOR) 40 mg tablet Take 1 tablet (40 mg total) by mouth 1 (one) time each day. 90 tablet 3 08/26/19 25 Active metoprolol succinate (TOPROL-XL) 50 mg 24 hr tablet Take 1.5 tablets (75 mg total) by mouth 1 (one) time each day. Do not crush or chew. 90 tablet 2 09/25/19 25 Active apixaban (Eliquis) 5 mg tablet Take 1 tablet (5 mg total) by mouth 2 (two) times a day. 180 tablet 2 10/20/19 25 Active apixaban (Eliquis) 5 mg tablet Take 1 tablet (5 mg total) by mouth 2 (two) times a day. 12/25/19 24 025 Discontinued Active Problems Problem Noted Date Diagnosed Date Ventricular tachycardia ([facility] V24, [facility] V2 8) 06/05/2024 Assessment & Plan (06/05/2024 8:31 PM EST): Patient with episode of nonsustained ventricular tachycardia in November none since. Reported in January because there is interrogation scheduled. She said no palpitations no lightheadedness or dizziness. No further episodes since November of this year SSS (sick sinus syndrome) ([facility] V24, [facility] V28) 12/03/2023 Overview (05/08/2024): Last Assessment & Plan: Patient underwent implantation of a Medtronic dual-chamber left bundle branch area pacemaker with Dr. Church 10/10/2023 after it was determined that he had a 6.9- second pause which was likely the cause of his dizziness and near syncopal episodes. He has not had any recurrent symptoms. He continues to follow routinely with our device clinic and remote monitoring. Assessment & Plan (08/05/2024 9:46 AM EST): Patient underwent implantation of a Medtronic dual-chamber left bundle branch area pacemaker with Dr. Church 10/10/2023 after it was determined that he had a 6.9- second pause which was likely the cause of his dizziness and near syncopal episodes. He continues to follow routinely with our device clinic and remote monitoring. Will evaluate for any recurrence of NSVT. (HFpEF) heart failure with p reserved ejection fraction (CMS/HCC V24, CMS/HCC V28) 12/02/2023 Overview (05/08/2024): Last Assessment & Plan: Patient has history [...] day or 4 pounds in one week. Assessment & Plan (06/05/2024 8:31 PM EST): Patient with a history of hypertension coronary disease status post multiple stents and three-vessel bypass in 2021. Postop A-fib renal insufficiency. Echo shows an EF of 45 to 50% with a dilated left atrium reduced right ventricular systolic function. In 09/09/2023 is admitted with episode of near syncope was found of a 6.9-second pause and a permanent pacemaker is been placed. An episode nonsustained ventricular tachycardia in January and none since History of pacemaker 12/02/2023 Pre-syncope 12/02/2023 Orthostatic hypotension 12/02/2023 Overview (05/08/2024): Last Assessment & Plan: Patient denies any issues with lightheadedness or dizziness. Blood pressure is well-controlled today. Edema 07/24/2022 Overview (05/08/2024): Last Assessment & Plan: we did discuss his leg edema. He like to try 5 mg of furosemide every day as opposed to 10 mg alternating every other day. He will call me in a week to let me know how he does on the 5 mg once daily. If he does end up on this dose then we will check a Chem-7 S/P CABG x 3 02/05/2022 Overview (05/08/2024): Done at [facility] [place] on [place]/31/21 with Jessica Martínez Done at [facility] [place] on 08/20/21 with Doreen Verde - Indications: [...] pain and we will continue to monitor. 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 This is at goal. Continue with present dose of atorvastatin as prescribed. Assessment & Plan (08/05/2024 9:46 AM EST): Patient continues on atorvastatin 40 mg daily. Update lipid panel. Orders: Lipid panel; Future Obesity 09/03/2021 Atrial fibrillation ([facility] V24, [facility] V28) 0 07/23/2021 Overview (05/08/2024): Last Assessment & Plan: Patient is history of atrial fibrillation with intermittent atrial flutter. He remains asymptomatic from this and his heart rate is well-controlled. He continues on Eliquis for anticoagulation and metoprolol for rate control. He denies any palpitations. Assessment & Plan (08/05/2024 9:46 AM EST): Patient with history of paroxysmal atrial fibrillation. ECG today showing underlying atrial flutter. [id number] score of 6, he continues on anticoagulation with Eliquis 5 mg twice daily and is tolerating this well. Orders: ECG 12 lead Assessment & Plan (06/05/2024 8:31 PM EST): History of tachybradycardia syndrome A-fib is rate controlled and anticoagulated pacemaker in place for bradycardia arrhythmia pacemaker show 1 episode of nonsustained VT Diabetes mellitus ([facility] V24, [facility] V28) 09/2021 Obstructive sleep apnea 07/23/2021 CAD (coronary artery disease) 07/11/2020 Overview (05/08/2024): Last Assessment & Plan: Patient has history of coronary artery disease status post multiple stenting procedures in the past and CABG surgery in 2021. He is feeling well and denies any exertional anginal symptoms. He continues on cardioprotective medical therapy with aspirin, beta-samantha and statin. I have reviewed with the patient the importance of a heart healthy lifestyle which includes eating a low-fat low-salt diet, getting regular exercise, maintaining a healthy weight, not smoking, and following up with routine medical care. Assessment & Plan (08/05/2024 9:46 AM EST): Patient has history of coronary artery disease status post multiple stenting procedures in the past and CABG surgery in 2021. He is reporting left lower chest discomfort with exertion hence we will update a nuclear stress test. He continues on cardioprotective medical therapy with aspirin, beta-samantha and statin. Patient advised to seek emergency medical attention by calling 911 if they were to develop severe dyspnea, chest pain that did not resolve with rest or nitroglycerin, or if they were to faint. Orders: Transthoracic echocardiogram (TTE) complete with PRN contrast, bubble, strain, and 3D order panel; Future Nuclear stress test with myocardial perfusion; Future Lipid panel; Future Dizziness 07/11/2020 Overview (05/08/2024): Last Assessment & Plan: We did discuss his dizziness. Its unclear what the etiology of this is. He did not worsen when we increase his metoprolol dose from 25-50. His blood pressures and heart rates have been stable. It is likely that this is due to his neuropathy as well as autonomic dysfunction from his Parkinson's. HTN (hypertension) 07/11/2020 Overview (05/08/2024): Last Assessment & Plan: Patient's blood pressure is under excellent control with a reading today of 122/80. Continue with all therapies as prescribed. Assessment & Plan (08/05/2024 9:46 AM EST): Blood pressure is well-controlled today 120/70, he comes with a blood pressure log also showing excellent control at home. Continue on current antihypertensive medication regimen. I have reviewed with the patient the importance of a heart healthy lifestyle which includes eating a low-fat low-salt diet, getting regular exercise, maintaining a healthy weight, not smoking, and following up with routine medical care. Hypercholesterolemia 07/11/2020 Overview (05/08/2024): Last Assessment & Plan: Patient's last LDL cholesterol is 33. This is at goal. Continue with present dose of atorvastatin as prescribed. Encounters Date Type Department Care Team Description 10/22/2024 4:25 PM EDT Ancillary Procedure [facility] - [address] [place] [address] 10/20/2024 Telephone [facility] [address] [place] [address] Irene Reeves NP eliquis (eliquis) 10/15/2024 10:30 AM EDT Ancillary Procedure [facility] - [address] [place] [address] Coronary artery disease involving red devil heart with angina pectoris, unspecified vessel or lesion type (CMS/HCC V24); HFrEF (heart failure with reduced ejection fraction) (CMS/HCC V24, CMS/HCC V28) 08/26/2024 Telephone [facility] [address] [place] [address] Irene Reeves NP Med Refill 08/20/2024 7:30 AM EST Ancillary Procedure [facility] - [address] [place] [address] Coronary artery disease involving red devil heart with angina pectoris, unspecified vessel or lesion type (CMS/HCC V24); Chest discomfort 08/17/2024 8:50 AM EST Ancillary Procedure [facility] - [address] [place] [address] 08/17/2024 Telephone [facility] - [address] [place] [address] Sugey Powers PA 08/05/2024 8:40 AM EST Office Visit [facility] [address] [place] [address] Emely Brooke NP Paroxysmal atrial fibrillation (CMS/HCC V24, CMS/HCC V28) (Primary Dx); Coronary artery disease involving red devil heart with angina pectoris, unspecified vessel or lesion type (CMS/HCC V24); HFrEF (heart failure with reduced ejection fraction) (CMS/HCC V24, CMS/HCC V28); Hyperlipidemia, unspecified hyperlipidemia type; Hypertension, unspecified type; SSS (sick sinus syndrome) ([facility] V24, [facility] V28); Chest discomfort from Last 3 Months Immunizations Name Administration Dates Next Due Pfizer SARS-CoV-2 COVID-19, mRNA, LNP-S, preservative free 09/21/2020,08/31/2020 Surgical History Surgery Date Site/Laterality Comments CARDIAC CATHETERIZATION CORONARY STENT PLACEMENT Medical History Medical History Date Comments BPH (benign prostatic hyperplasia) CKD (chronic kidney disease), stage II Class 2 obesity Gout Left arm pain Obesity Family History Medical History Relation Name Comments Heart attack Father Diabetes Mother Stroke Mother Relation Name Status Comments Father Mother Social History Tobacco Use Types Packs/Day Years Used Date Smoking Tobacco: Never Smokeless Tobacco: Never Tobacco Cessation:Counseling Given: Not Answered Alcohol Use Standard Drinks/Week Comments Not Currently 0 (1 standard drink = 0.6 oz pur e alcohol) Sex and Gender Information Value Date Recorded Sex Assigned at Not on file Legal Sex Male 11:18 PM EST Gender Identity Not on file Sexual Orientation Not on file Obstetrics History Last Filed Vital Signs Vital Sign Reading Time Taken Comments Blood Pressure 136/78 10/15/2024 2:01 PM EDT Pulse 95 08/05/2024 8:21 AM EST Temperature - - Respiratory Rate - - Oxygen Saturation 100% 08/05/2024 8:21 AM EST Inhaled Oxygen Concentration - - Weight 83 kg (183 lb) 10/15/2024 2:01 PM EDT Height 172.7 cm (5' 8 ) 10/15/2024 2:01 PM EDT Body Mass Index 27.83 10/15/2024 2:01 PM EDT Plan of Treatment Upcoming Encounters Date Type Department Care Team (Late st Contact Info) Description 11/09/2024 2:30 PM EDT Ancillary Procedure [facility] - [address] [place] [id number] 11/18/2024 9:10 AM EDT Office Visit [facility] - [address] [facility] [address] [place] [id number] Irene Reeves NP [address] [place] [address] [address] [place] [address] Health Maintenance Due Date Last Done Comments Diabetes: Annual Foot Exam 10/26/1955 Diabetes: Annual Retina Eye Exam 10/26/1955 DTaP,Tdap,and Td Vaccines (1 - Tdap) 10/26/1962 Pneumococcal Vaccine: 50+ Years (1 of 2 - PCV) 10/26/1962 Zoster Vaccines (1 of 2) 10/26/1993 Depression Screening 06/26/2022 Falls Risk Assessment 06/26/2022 Medicare Annual Wellness Visit 06/26/2022 Social Influencers of Health Screening 06/26/2022 Diabetes: Annual Urine Albumin-Creatinine Ratio (uACR) 07/05/2022 Diabetes: Blood Sugar Control Test (HGBA1C) 07/05/2022 Diabetes: Annual GFR (Glomerular Filtration Rate) 07/27/2025 07/27/2024, 07/27/2024, 01/12/2024, Additional history exists Hypertension/CHF/CAD Annual BMP Blood Test 07/27/2025 07/27/2024, 07/27/2024, 01/12/2024, Additional history exists Cholesterol Screening (Lipid Panel) 08/17/2029 08/17/2024 COVID-19 Vaccine Completed 03/25/2024, , 11/08/2022, Additional history exists Influenza Vaccine Completed 03/25/2024, , 04/01/2022, Additional history exists RSV Immunization Adult Patients Completed 03/25/2024 HIB Vaccines Aged Out No longer eligi ble based on patient's age to complete this topic HPV Vaccines Aged Out No longer eligi ble based on patient's age to complete this topic Hepatitis A Vaccines Aged Out No long er eligible based on patient's age to complete this topic Hepatitis B Vaccines Aged Out No long er eligible based on patient's age to complete this topic IPV Vaccines Aged Out No longer eligi ble based on patient's age to complete this topic MMR Vaccines Aged Out No longer eligi ble based on patient's age to complete this topic Meningococcal ACWY Vaccine Aged Out N o longer eligible based on patient's age to complete this topic Meningococcal B Vaccine Aged Out No l onger eligible based on patient's age to complete this topic RSV Immunization Patients Under 20 months Aged Out No longer eligible based on patient's age to complete this topic Varicella Vaccines Aged Out No longer eligible based on patient's age to complete this topic Medical Devices Implanted Type Area Striper Device Identifier Shelf Expiration Date Model / Serial / Lot Medt-Card Beti Xt Dr Simms [id number] Implanted: (Quantity not on file) Cardiac Pacemaker [employer] - CARDIAC RHYTH-CRDM BETI XT DR SIMMS [id number] / [id number] / Procedures Procedure Name Priority Date/Time Associated Diagnosis Comments CARDIAC DEVICE CHECK- REMOTE- MURJ Routine 10/22/2024 4:21 PM EDT TRANSTHORACIC ECHOCARDIOGRAM (TTE) COMPLETE Routine 10/15/2024 11:15 AM EDT Coronary artery disease involving red devil heart with angina pectoris, unspecified vessel or lesion type (CMS/HCC V24) HFrEF (heart failure with reduced ejection fraction) (CMS/HCC V24, CMS/HCC V28) NM LEXISCAN STRESS TEST W/ MYOCARDIAL PERFUSION Routine 08/20/2024 10:14 AM EST Coronary artery disease involving red devil heart with angina pectoris, unspecified vessel or lesion type (CMS/HCC V24) Chest discomfort LIPID PANEL Routine 08/17/2024 9:57 AM EST Coronary artery disease involving red devil heart with angina pectoris, unspecified vessel or lesion type (CMS/HCC V24) Hyperlipidemia, unspecified hyperlipidemia type CARDIAC DEVICE CHECK- REMOTE- MURJ Routine 08/17/2024 8:49 AM EST ECG 12-LEAD Routine 08/05/2024 9:46 AM EST Paroxysmal atrial fibrillation (CMS/HCC V24, CMS/HCC V28) from Last 3 Months Results * Cardiac device check - Remote- MURJ (10/22/2024 4:21 PM EDT) Only the most recent of2 resultswithin the time period is included. Date Time Interrogation Session [id number] CV DEVICE CHECK Type Interrogation Session Remote CV DEVICE CHECK Implantable Pulse Generator Striper MDT CV DEVICE CHECK Implantable Pulse Generator Type IPG CV DEVICE CHECK Implantable Pulse Generator Model Beti XT DR MRI [id number] CV DEVICE CHECK Implantable Pulse Generator Serial Number [id number] CV DEVICE CHECK Implantable Pulse Generator Implant Date 20231010 CV DEVICE CHECK Battery Remaining Longevity 170.0 CV DEVICE CHECK Battery Voltage 3.180 CV D EVICE CHECK Battery FINISHER HOT STRIP Trigger 2.625 CV DEVICE CHECK Battery Status Middle of Service CV DEVICE CHECK Scottie Statistic RA Percent Paced 0.00 CV DEVICE CHECK Scottie Statistic RV Percent Paced 82.90 CV DEVICE CHECK Atrial Tachy Statistic AT/AF [place] Percent 1.10 CV DEVICE CHECK Lead Channel Sensing Intrinsic Amplitude 0.250 CV DEVICE CHECK Lead Channel Setting Sensing Sensitivity 0.30 CV DEVICE CHECK Lead Channel Impedance Value 532 CV DEVICE CHECK Lead Channel Sensing Intrinsic Amplitude 18.625 CV DEVICE CHECK Lead Channel Setting Sensing Sensitivity 0.90 CV DEVICE CHECK Lead Channel Impedance Value 741 CV DEVICE CHECK Lead Channel Pacing Threshold Amplitude 0.625 CV DEVICE CHECK Lead Channel Pacing Threshold Pulse Width 0.4 CV DEVICE CHECK Lead Channel RV Pacing Threshold Date 2024-05-10 CV DEVICE CHECK Lead Channel Setting Pacing Amplitude 2.000 CV DEVICE CHECK Lead Channel Setting Pacing Pulse Width 0.4 CV DEVICE CHECK Scottie Setting Mode (NBG Code) VVIR CV DEVICE CHECK Scottie Setting Lower Rate Limit 60 CV DEVICE CHECK Scottie Setting Maximum Sensor Rate 130 CV DEVICE CHECK Zone Setting Type Category AT/AF CV DEVICE CHECK Rate 171 CV DEVICE CHECK Therapies Some Rx Off CV DEVIC E CHECK Zone Setting Status Monitor CV DEVICE CHECK Zone ID 2 CV DEVICE CHECK Zone Setting Type Category VT CV DEVICE CHECK Rate 150 CV DEVICE CHECK Zone Setting Status ENABLED CV DEVICE CHECK Zone ID 6 CV DEVICE CHECK Date of Service 2024-05-20 CV DEVICE CHECK Anatomical Region Laterality Modality Device Interroga tion 05/10/2024 6:44 AM EDT Impressions 05/10/2024 12:57 PM EDT Tachycardia: VT * Stored EGMs are consistent with or suggestive of Ventricular Tachycardia * Total episodes: 1 *15 Beats 05-04-24 Narrative Procedure Note uSgey Powers PA - 10/22/2024 IMPRESSION: Tachycardia: VT * Stored EGMs are consistent with or suggestive of VentricularTachycardia * Total episodes: 1 *15 Beats -15-24 us Sugey Powers JOSÉ MIGUEL CV IMPLANTABLE CARDIAC DEVICE GA OCEDURES Final Result * (ABNORMAL) TRANSTHORACIC ECHOCARDIOGRAM (TTE) COMPLETE (10/15/2024 11:15 AM EDT) LV EDV (A2C) 86 mL CV PACS LV EDV (A4C) 86 mL CV PACS LV Diastolic Volume (BP) 86 62 - 150 mL CV PACS LV ESV (A2C) 46 mL CV PACS LV ESV (A4C) 42 mL CV PACS LV Systolic Volume (BP) 46 21 - 61 mL CV PACS IVSD 1.0 0.6 - 1.0 cm CV PACS LVIDD 4.9 4.2 - 5.8 cm CV PACS LVIDS 3.9 2.5 - 4.0 cm CV PACS LVOT Diameter 2.2 cm CV PACS LVOT Mean Gunnar 0.4 m/s CV PACS LVOT Mean Grad 1 mmHg CV PACS LVOT Mean Grad 1 mmHg CV PACS LVOT Peak VTI 12.4 cm CV PACS LVOT Peak Gunnar 0.7 m/s CV PACS LVOT Peak Gradient 2 mmHg CV PACS LVPWD 1.0 0.6 - 1.0 cm CV PACS MV E' Tissue Velocity Lateral 13 cm/s CV PACS MV E' Tissue Velocity Septal 9 cm/s CV PACS Ejection Fraction (A2C) 47 % CV PACS Ejection Fraction (A4C) 51 % CV PACS Ejection Fraction (BP) 47 % CV PACS LVOT Area 3.8 cm2 CV PACS LVOT Stroke Volume 47 mL CV PACS Left Atrium Minor [place] 6.8 cm CV PACS Left Atrium Major [place] 7.0 cm CV PACS LA Area Sys (A2C) 34 cm2 CV PACS LA Area Sys (A4C) 33 cm2 CV PACS LA Volume (BP) 135 mL CV PACS LA Size 5.6 cm CV PACS RA Area 24.6 cm2 CV PACS RA 2D Volume 89 mL CV PACS Aortic Sinus Valsalva 3.8 cm CV PACS IVC Proximal 1.9 cm CV PACS MR PISA Nyquist Gunnar 36 cm/s CV PACS PISA MR Radius 0.80 cm CV PACS MV Mean Gradient 1 mmHg CV PACS MV Mean Gradient 1 mmHg CV PACS MV Mean Gradient 1 mmHg CV PACS MV Mean Gradient 1 mmHg CV PACS MV Mean Gradient 1 mmHg CV PACS MR VTI 163.0 cm CV PACS MV VTI 13.2 cm CV PACS MR PISA Max Velocity 4.3 m/s CV PACS MR Peak Gradient 75 mmHg CV PACS Mitral Valve Max Velocity 0.9 m/s CV PACS MV Peak Gradient 3 mmHg CV PACS MV Deceleration Norman 8.7 m/s2 CV PACS E Wave Deceleration Time 102(A) 119 - 242 ms CV PACS MV PHT 30 ms CV PACS MV Peak E Gunnar 0.75 m/s CV PACS PISA MR EROA 0.34 cm2 CV PACS MV Area PHT 7.3 cm2 CV PACS MV Area Continuity Equation 3.6 cm2 CV PACS PISA Regurgitant Volume 55 mL CV PACS PV Acceleration Time 211 ms CV PACS PV Mean Gradient 1 mmHg CV PACS PV VTI 13.2 cm CV PACS PV Peak Velocity 0.5 m/s CV PACS PV Peak Gradient 1 mmHg CV PACS RV Diastolic Basal Dimension 5.5(A) 2.5 - 4.1 cm CV PACS RV S' 6 cm/s CV PACS TAPSE 12 mm CV PACS TR Peak Velocity 1.98 m/s CV PACS TR Peak Gradient 16 mmHg CV PACS E/E' Ratio Septal 8 CV PACS E/E' Ratio Averaged 7 CV PACS Relative Wall Thickness ratio 0.41 CV PACS FS 20 % CV PACS LV Mass 2D 176 g CV PACS MV VTI:LVOT VTI ratio 1.1 CV PACS LVOT flow 152 mL/s CV PACS E/E' Ratio Lateral 6 CV PACS BSA 2 m2 CV PACS LV Diastolic Volume Index (BP) 44 34 - 74 mL/m2 CV PACS LV Systolic Volume Index (BP) 23 11 - 31 mL/m2 CV PACS LV EDV Index (A4C) 44 mL/m2 CV PACS LV ESV Index (A4C) 21 mL/m2 CV PACS LV EDV Index (A2C) 44 mL/m2 CV PACS LV ESV Index (A2C) 23 mL/m2 CV PACS LA Volume Index (BP) 69 mL/m2 CV PACS LVIDD Index 2.49 cm/m2 CV PACS LVIDS Index 1.98 cm/m2 CV PACS LV Mass Index 2D 89 50 - 102 g/m2 CV PACS LVOT Stroke Index 24 mL/m2 CV PACS LA Dimension Index 2D 2.8 cm/m2 CV PACS RA 2D Volume Index 45(A) 18 - 32 mL/m2 CV PACS Right Ventricular Peak Systolic Pressure 19 mmHg CV PACS Est. RA Pressure 3 mmHg CV PACS Anatomical Region Laterality Modality Ultrasound Narrative 10/17/2024 5:41 PM EDT ?Left ventricle cavity size is normal. Left ventricular systolic function is mildly decreased with an ejection fraction of 45-50%.. ?? Patient appears to be in atrial flutter ?Mild LV global hypokinesis is present. Regional LV wall motion abnormalities noted. See wall scoring diagram. ?Left ventricle wall thickness is normal. ?Abnormal left ventricular septal motion consistent with right ventricular pacing. ?Right ventricle cavity is moderately enlarged. ??There is reduced right ventricular systolic function ?Aortic valve leaflets are mildly thickened. ??No significant stenosis identified ?Moderate to mildly severe mitral insufficiency is present ?Compared to previous study dated 03/09/2022. ??Ejection fraction is unchanged. ??Mitral regurgitation seems to be a little bit worse Left Ventricle Left ventricle cavity size is normal. Wall thickness is normal. Systolic function is mildly decreased with an ejection fraction of 45-50%. Mild global LV hypokinesis is present. There is abnormal septal motion consistent with right ventricular pacing. Right Ventricle Right ventricle cavity is moderately dilated. A pacer wire is present in the right ventricle. Left Atrium Left atrium cavity is severely dilated. Right Atrium Right atrium cavity is severely dilated. IVC/SVC Inferior vena cava structure is normal. RA pressures is estimated to be 3 mmHg (IVC diameter <21 mm and decreases >50% during inspiration). Mitral Valve The leaflets are mildly thickened. There is mild annular calcification. There is mild regurgitation with a centrally directed jet. There is no evidence of mitral valve stenosis. Tricuspid Valve Tricuspid valve structure is normal. There is no significant regurgitation. The right ventricular systolic pressure is normal. Aortic Valve The aortic valve is trileaflet. The leaflets are mildly thickened. There is no regurgitation or stenosis. Pulmonic Valve There is no pulmonic valve regurgitation. Ascending Aorta The aorta was not well visualized. Pericardium Pericardium appears normal. There is no pericardial effusion. Study Details Overall the study quality was adequate. Wall Scoring Baseline Score Index: 2.00 The following segments are hypokinetic: basal inferoseptal and basal inferior. Other segments could not be evaluated. us Emely Brooke NP CV ECHO PROCEDURES Final Resul t * NM LEXISCAN STRESS TEST W/ MYOCARDIAL PERFUSION (08/20/2024 10:14 AM EST) Exercise/inject ion duration (min) 0 CV PACS STRESS Exercise/inject ion duration (sec) 46 CV PACS STRESS Peak SBP 104 mmHg CV PACS STRESS Peak DBP 60 mmHg CV PACS STRESS Peak HR 98 bpm CV PACS STRESS Baseline HR 88 bpm CV PACS STRESS Baseline SBP 100 mmHg CV PACS STRESS Baseline DBP 66 mmHg CV PACS STRESS Estimated workload 1.0 METS CV PACS STRESS Percent HR 70 % CV PACS STRESS Rate Pressure Product 10,192.0 mmHg*bpm CV PACS STRESS Target HR 119 bpm CV PACS STRESS O2 sat rest 99 % CV PACS STRESS Max HR Percent 70 % CV PA CS STRESS ST Depression (mm) 0 mm CV PACS STRESS BSA 2 m2 CV PACS STRESS TID 0.91 CV PACS STRESS Nuc Stress EF 56 % CV PAC S STRESS Nuc Rest EF 55 % CV PACS STRESS Anatomical Region Laterality Modality Nuclear Medicine 08/20/2024 8:28 AM EST 08/20/2024 9:02 AM EST Narrative 08/20/2024 5:45 PM EST Raw Images and CineLoop Images: Motion artifact noted. ??Hands are on both side. Myocardial perfusion raw images revealed small in size, moderate in intensity hypoperfusion of the apex and stress images which partially improves in the rest images suggestive of small infarct of the apex with ella-infarct ischemia. ??Raw images also revealed some hypoperfusion of the basal inferior wall and the rest images which improves in stress images suggestive of artifacts. ??When attenuation correction is applied, this perfusion defect persist predominantly in the apex at stress images ??which mostly improves on the rest images suggestive of apical infarct with ella-infarct ischemia. ??Gated SPECT images revealed hypokinesis of the apex. Impression: 1. ??Positive Regadenosone stress test with nuclear imaging. ?? 2. The patient had no chest pain during the test. 3. EKG at baseline was normal sinus rhythm, no ischemic EKG changes at stress. 4. LV Cavity size is normal. 5. ??No transient ischemic dialatation (TID 0.91) 6, CT scan showed diffuse calcification of the coronary arteries. 7. Raw perfusion imgaes revelaed small in size, moderate in intensity hypoperfusion of the apex at stress which predominantly improves at rest suggestive of small apical scar with large ella-infarct ischemia. ??When attenuation correction is applied, this perfusion defect persists in the apex and stress images which predominantly improves in the rest images once again suggesting a small scar with large ella-infarct ischemia. 8. Gated SPECT imaging was performed which demonstrated hypokinesis of the apex with a calculated LVEF of 56% at stress and 55% at rest. Stress Findings A pharmacological stress test was performed using regadenoson, 0.4 mg IV over 10-15 seconds, followed by radiopharmacological injection 10 seconds post infusion. Total stress time was 0 min and 46 sec. The patient reached the end of the protocol. Blood pressure demonstrated a normal response. Heart rate demonstrated a normal response. The patient reported no symptoms during the stress test. ECG 78 yo male with history of atrial fibrillation, hypertension, coronary artery disease, hyperlipidemia, diabetes, chronic kidney disease, obstructive sleep apnea, obesity and atrial fibrillation referred for exertional chest discomfort and shortness of breath. The ECG shows normal sinus rhythm. The ECG axis is normal. There were no arrhythmias during stress. There is no ST segment changes during stress. There were no arrhythmias during recovery. The result of the stress ECG was negative for ischemia. Nuclear Study Quality Study technique: MPI, SPECT, multi, rest and stress, 1 day. Overall image quality is good. No radiopharmaceutical dose was extravasated. The time from injection to rest imaging is 30 mins. The time from injection to stress imaging is 40 mins. Stress Function Comments Stress ejection fraction is 56%. Rest Function Comments Resting ejection fraction was 55%. us Emely Brooke NP CV STRESS PROCEDURES Final Res ult * (ABNORMAL) Lipid panel (08/17/2024 9:57 AM EST) Cholesterol Total 92(L) 100 - 199 mg/dL [facility] Triglycerides 50 0 - 149 mg/dL [facility] 1 HDL Cholesterol 50 >39 mg/dL [facility] 1 VLDL Cholesterol Calculated 13 5 - 40 mg/dL [facility] 1 LDL Chol Calc (NIH) 29 0 - 99 mg/dL [facility] 1 Blood Venous blood specimen / Unknown 08/17/2024 9:57 AM EST 08/17/2024 Narrative [facility] 1 - 08/18/2024 2:06 AM EST Performed at: ??01 - [facility] [address] ??[id number] Anodizing Line Operator: Coral Phillips MD, Phone: ??[phone] us Emely Brooke BASEBALL PLAYER LAB BLOOD ORDERABLES Final Res ult Performing Organization Address City/[facility] Co de Phone Number [facility] 1 * ECG 12 lead (08/05/2024 9:46 AM EST) Ventricular Rate ECG 95 BPM [facility] Atrial Rate 95 BPM [facility] P-R Interval 248 ms [facility] QRS Duration 104 ms [facility] Q-T Interval 384 ms GEMUSE QTc 482 ms GEMUSE P Wave [place] -82 degrees GEMUSE R [place] 96 degrees GEMUSE T [place] -25 degrees G[facility] ECG Interpretation Sinus rhythm with long 1st degree AV Block Rightward axis Possible Inferior TN Abnormal ECG No previous ECGs available Confirmed by Shaquille CEVALLOS JAMES ([id number]) on 08/06/2024 4:55:58 PM [facility] 08/05/2024 8:32 AM EST 08/06/2024 4:55 PM EST us Irene Reeves BASEBALL PLAYER ECG ORDERABLES Edited Resul t - Final Performing Organization Address City/State/[facility] Co de Phone Number [facility] from Last 3 Months Insurance [employer] - [place] MEDICARE ADVANTAGE Care Teams Wet Plant Operator Relationship Specialty Start Date End Date Bianka Gutierrez NP [address] [place] [address] PCP - General Nurse Practitioner 06/04/24
== END 2024-11-03 14:16 | disposition home or self-care (01) ==
LOC: HO.HSMS 13:32
PROVIDERS: PCP Nurse Practitioner Primary Care; Visit Provider Psychiatry & Neurology Neurology
DX: G23.2 Striatonigral degeneration (principal); I95.1 Orthostatic hypotension; R26.9 Unspecified abnormalities of gait and mobility; G47.00 Insomnia, unspecified
CPT/HCPCS: 99214; G2211

== ENCOUNTER → 2024-11-03 13:31 | Outpatient (BNVA) | payer MEDICARE, SELFPAY | PROVIDERS: PCP Nurse Practitioner Primary Care; Visit Provider Psychiatry & Neurology Neurology | DX: G23.2 Striatonigral degeneration (principal); G47.00 Insomnia, unspecified; I95.1 Orthostatic hypotension; R26.9 Unspecified abnormalities of gait and mobility | CPT/HCPCS: 99212 ==

== ENCOUNTER 2025-02-08 14:12 | Outpatient (AMB) | payer MEDICARE, SELFPAY ==
--- NOTE | 2025-02-08 14:07 | A.OFFVIS_ITS ---
Intake Visit Reasons: 3 mo follow up Intake Note: Trouble falling asleep at night Normalizer Required: No Accompanied by: Self / Same As Patient Allergies adhesive tape Allergy (Mild, Verified 02/08/25 14:09) Itching Medication List - Last Reconciled 02/08/25 by Connie Hahn MD allopurinol 300 mg PO DAILY apixaban (Eliquis) 5 mg PO BID aspirin (Adult Low Dose Aspirin) 81 mg PO DAILY atorvastatin 40 mg PO DAILY bisacodyl (Dulcolax (bisacodyl)) 10 mg PO BEDTIME cetirizine (Zyrtec) 10 mg PO DAILY PRN docusate sodium (Colace) 100 mg PO BID finasteride 5 mg PO DAILY fluticasone furoate 50 mcg/actuation inhalation metoprolol succinate ER 75 mg PO DAILY nitroglycerin 0.4 mg sublingual polyethylene glycol 3350 (Miralax) 17 grams PO DAILY potassium chloride 20 mEq PO DAILY potassium chloride ER (Klor-Con M) 20 mEq PO DAILY torsemide 12.5 mg PO DAILY HPI Comments Details: 79y/o male calls for follow up. He is sleeping better at night - especially if he does not nap during daytime. Now he naps 12- 1pm 3 times a week after his cardiac rehab. His ELIZABETH scan was positive for parkinsons. His lightheadedness improved but still has some episodes. No episodes of passing out. he drinks 60 - 72 oz of water a day. He is feeling better since he had the pacemaker few mths ago . His constipation improved with miralax 5-6 days a week .He uses dulcolax and colace . He is doing well with current medications.No hallucinations or falls. Memory is mildly worse. Previous history-He had a Triple bypass surgery on Aug 20 2021.Within 2 weeks after surgery he had left leg movements in sleep and was thought that it could be parkinsons.The patient says that he has random left leg jerks . He denies any tremors. He has some memory issues. He has word finding difficulties. He had vivid dreams . Not sure if he had a REM behavior disorder.No depression or anxiety. He noticed a change in voice - softer. He used to sing and stopped 2 years ago. Occasional drooling No swallowing issues. His handwriting is slower and smaller He had 4 falls the first 2 weeks after surgery . He is good with dressing, showering , using utensils. He is slower. 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 [facility] Medical History Insomnia Parkinsonism Parkinson's disease with neurogenic orthostatic hypotension Obstructive sleep apnea of adult Hyperlipidemia Gout Diabetes CAD (coronary artery disease) CKD (chronic kidney disease) BPH (benign prostatic hyperplasia) Atrial fibrillation Aortic atherosclerosis Surgical History Status post biventricular cardiac pacemaker insertion S/P triple vessel bypass History of PTCA Hx of tonsillectomy Family History Mother FH: CVA (cerebrovascular accident) DM (diabetes mellitus) Father No problems noted. Maternal Grandfather No problems noted. Social History Alcohol intake: never Patient Tobacco Use Status: Never used Tobacco Telehealth Telehealth Telehealth Platform: Telephone Location of provider rendering services: practice address Location of patient: address on file Patient Identification confirmed using: Name, : Yes Telehealth method: voice only Patient verbally consented to treatment: Yes Patient verbally consented to billing insurance company: Yes Patient informed of any privacy concerns related to visit: Yes Assessment & Plan Assessment & Plan (1) Parkinson's plus syndrome: Comment: MSA Code(s): G23.2 - Striatonigral degeneration Category: Medical (2) Orthostatic hypotension: Comment: likley due to parkinsons MSA and medications Code(s): I95.1 - Orthostatic hypotension Category: Medical (3) Gait disorder: Code(s): R26.9 - Unspecified abnormalities of gait and mobility Category: Medical (4) Insomnia: Code(s): G47.00 - Insomnia, unspecified Category: Medical Qualifiers: Insomnia type: unspecified Qualified Code(s): G47.00 - Insomnia, unspecified Plan Monitor blood pressure- has been good since last visit 105-115/55-65 Increase fluids- add sports drinks or liquid IV Continue exercise discussed sleep hygiene - avoid daytime naps - regular sleep time Coding Level of Care Code Tele Est Pt Level 4 (95641) Diagnoses Parkinson's plus syndrome G23.2 Orthostatic hypotension I95.1 Gait disorder R26.9 Insomnia, unspecified type G47.00 Insomnia type: unspecified Time Spent (min) 20
--- OUTSIDE RECORDS SUMMARY | 2025-02-08 15:28 | XMS_ITS | Clinical Summary ---
Author Organization [facility] Address [address] [address] Phone Care Team Providers Care Park Ranger Name Role Phone Bianka Gutierrez RECOVERY ENGINEER-C Primary Care Provider + Allergies Active Allergy [...] by mouth 1 (one) time each day Take 5 mg daily in addition to your 10 mg pills for total daily dose of 15 mg a day 90 tablet 5 02/01/20 26 Active torsemide (DEMADEX) 5 MG tablet Take 1 tablet (5 mg total) by mouth 1 (one) time each day 90 tablet 3 5 02/01/20 25 Discontinu ed(Reorder (does not appear on AVS)) Active Problems Problem Noted Date Diagnosed Date [...] bypass grafting 02/0508/06/2023 Overview (08/06/2023): [place] [facility] Jessica Martínez [place] [facility] [place] with Doreen Verde - Indications: [...] II 09/25/2021 Atherosclerotic heart diseas e of [place] coronary artery without angina pectoris 08/31/2021 Benign [...] Diagnosed Date Resolved Date Chronic constipation 04/19/2022 08/06/2023 024 High-density lipoprotein deficiency 04/19/202208/0601/30/2024 Small fiber neuropathy 04/19/2022 08/06/202301/29 History of cardiac catheterization 02/05/2022202301/30/2024 Overview (08/06/2023): [place] [facility] [place] with PHILLIP - indications: Afib, [...] Encounters Date Type Department Care Team Description 01/31/2025 10:00 AM EDT Office Visit [facility] [address] [place] [phone] Con Rosa MD Stage 3a chronic kidney disease (HCC) (Primary Dx); 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); Ventricular tachycardia, not otherwise specified (HCC); Secondary hyperparathyroidism (HCC); Proteinuria, not otherwise specified; Parkinson's disease, not otherwise specified (HCC); Orthostatic hypotension; Heart failure with normal ejection fraction (HCC); Gout, not otherwise specified; Atrial fibrillation, not otherwise specified (HCC) 01/30/2025 Orders Only [facility] [address] [id number] Con Rsoa MD Stage 3a chronic kidney disease (HCC); Proteinuria, not otherwise specified; Hypertension; Gout, not otherwise specified; Localized edema; Atrial fibrillation, not otherwise specified (HCC); Atherosclerotic heart disease of [place] coronary artery without angina pectoris, not otherwise specified; Abdominal aortic atherosclerosis (HCC) from Last 3 Months Immunizations Immunization Administration Dates Next Due Pfizer SARS-COV-2 04/10/2021,10/18/2020,09/28/19,09/21/2020,08/31/2020 Family History Medical History Relation Comments Diabetes [...] Sign Reading Time Taken Comments Blood Pressure 105/70 01/31/2025 9:44 AM EDT Pulse 68 01/31/2025 9:44 AM EDT Temperature - - Respiratory Rate - - Oxygen Saturation 95% 01/31/2025 9:44 AM EDT Inhaled Oxygen Concentration - - Weight 83.6 kg (184 lb 3.2 oz) 01/31/2025 9:44 A M EDT Height 172.7 cm (5' 8 ) 08/02/2024 9:45 AM EST Body Mass Index 28.01 08/02/2024 9:45 AM EST Plan of Treatment Upcoming Encounters Date Type Department Care Team (Late st Contact Info) Description 08/01/2025 9:40 AM EST Office Visit [facility] [address] [phone] Con Rosa MD [address] [phone] Health Maintenance Due Date Last Done Comments Pneumococcal Vaccine: 50+ Ye ars (1 of 2 - PCV) 10/26/1964 Diabetes: Hemoglobin A1C 08/29/2020 Diabetes: Ophthalmology Exam 08/29/2020 Diabetes: Pedal Pulse Checked 08/29/2020 Diabetes: Sensory Foot Exam 08/29/2020 Diabetes: Visual Foot Exam 08/29/2020 Influenza Vaccine (#1) 2025 Hepatitis B Vaccine Aged Out No longe r eligible based on patient's age to complete this topic Procedures Procedure Name Priority Date/Time Associated Diagnosis Comments PTH, INTACT Routine 01/24/2025 9:29 AM EDT MAGNESIUM Routine 01/24/2025 9:29 AM EDT PHOSPHATE ( PHOSPHORUS) Routine 01/24/2025 9:29 AM EDT URIC ACID Routine 01/24/2025 9:29 AM EDT VITAMIN D 25 HYDROXY Routine 01/24/2025 9:29 AM EDT PROTEIN / CREATININE RATIO, URINE Routine 01/24/2025 9:29 AM EDT COMPREHENSIVE METABOLIC PANEL Routine 01/24/2025 9:29 AM EDT CBC AND DIFFERENTIAL Routine 01/24/2025 9:29 AM EDT from Last 3 Months Results * Protein, Total, Random Urine w/Creatinine (Protein/Creat Ratio) (01/24/2025 9:29 AM EDT) Creatinine, Ur 75.5 Not Estab. mg/dL [facility] Protein, Ur 6.9 Not Estab. mg/dL [facility] Urine Protein/Creatin ine Ratio 91 0 - 200 mg/g creat [facility] 01/24/2025 9:29 AM EDT 01/24/2025 Con Rosa MD LAB URINE ORDERABLES Final Re sult [facility] [address] [place] [address] * Vitamin D 25 Hydroxy (01/24/2025 9:29 AM EDT) Vitamin D, 25-OH, Total 36.6 30.0 - 100.0 ng/mL [facility] Comment: Vitamin D deficiency has been defined by the [place] of Medicine and an Endocrine Society practice guideline as a level of serum 25-OH vitamin D less than 20 ng/mL (1,2). The Endocrine Society went on to further define vitamin D insufficiency as a level between 21 and 29 ng/mL (2). 1. IOM ([place] of Medicine). 2010. Dietary reference intakes for calcium and D. [place]: The National Academies Press. 2. Priya MF, Kody NC, Glendy-Manuel CORNEJO, et al. Evaluation, treatment, and prevention of vitamin D deficiency: an Endocrine Society clinical practice guideline. JCEM. 2010; 96(7):1911-30. 01/24/2025 9:29 AM EDT 01/24/2025 Con Rosa MD LAB BLOOD ORDERABLES Final Re sult [facility] [address] [place] [address] * (ABNORMAL) CBC and Differential (01/24/2025 9:29 AM EDT) WBC 7.2 3.4 - 10.8 x10E3/uL [facility] RBC 4.21 4.14 - 5.80 x10E6/uL [facility] Hemoglobin 13.6 13.0 - 17.7 g/dL [facility] Hematocrit 41.7 37.5 - 51.0 % [facility] MCV 99(H) 79 - 97 fL [facility] MCH 32.3 26.6 - 33.0 pg [facility] MCHC 32.6 31.5 - 35.7 g/dL [facility] RDW 13.0 11.6 - 15.4 % [facility] Platelets 152 150 - 450 x10E3/uL [facility] Neutrophils Relative 56 Not Estab. % [facility] Lymphocytes Relative 32 Not Estab. % [facility] Monocytes 8 Not Estab. % [facility] Eosinophils Relative 3 Not Estab. % [facility] Basophils Relative 1 Not Estab. % [facility] Neutrophils Absolute 4.0 1.4 - 7.0 x10E3/uL [facility] Lymphocytes Absolute 2.3 0.7 - 3.1 x10E3/uL [facility] Monocytes Absolute 0.6 0.1 - 0.9 x10E3/uL [facility] Eosinophils Absolute 0.2 0.0 - 0.4 x10E3/uL [facility] Basophils Absolute 0.1 0.0 - 0.2 x10E3/uL [facility] Immature Granulocytes 0 Not Estab. % [facility] Immature Grans (Absolute) 0.0 0.0 - 0.1 x10E3/uL [facility] 01/24/2025 9:29 AM EDT 01/24/2025 us Con Rosa MD LAB BLOOD ORDERABLES Final Re sult Performing Organization Address [facility] Co de Phone Number [facility] [address] [place] [address] * Uric Acid (01/24/2025 9:29 AM EDT) Uric Acid 3.9 3.8 - 8.4 mg/dL [facility] Comment:Therapeutic target f or gout patients: <6.0 01/24/2025 9:29 AM EDT 01/24/2025 us Con Rosa MD LAB BLOOD ORDERABLES Final Re sult Performing Organization Address [facility] Co de Phone Number [facility] [address] [place] [address] * Phosphorus (01/24/2025 9:29 AM EDT) Phosphorus 3.4 2.8 - 4.1 mg/dL [facility] 01/24/2025 9:29 AM EDT 01/24/2025 us Con Rosa MD LAB BLOOD ORDERABLES Final Re sult Performing Organization Address [facility]/ZIP Co de Phone Number [facility] [address] [place] [address] * (ABNORMAL) PTH, Intact (01/24/2025 9:29 AM EDT) PTH 103(H) 15 - 65 pg/mL [facility] 01/24/2025 9:29 AM EDT 01/24/2025 Con Rosa MD LAB BLOOD ORDERABLES Final Re sult Performing Organization Address [facility]/ZIP Co de Phone Number [facility] [address] [place] [address] * Magnesium (01/24/2025 9:29 AM EDT) Pathologist [facility] Magnesium 2.1 1.6 - 2.3 mg/dL [facility] 01/24/2025 9:29 AM EDT 01/24/2025 Con Rosa MD LAB BLOOD ORDERABLES Final Re sult Performing Organization Address [facility] Co de Phone Number [facility] [address] [place] [address] * (ABNORMAL) Comprehensive Metabolic Panel (01/24/2025 9:29 AM EDT) Pathologist [facility] Glucose 95 70 - 99 mg/dL [facility] BUN 34(H) 8 - 27 mg/dL [facility] Creatinine 1.57(H) 0.76 - 1.27 mg/dL [facility] eGFR CKD-EPI CR 2020 44(L) >59 mL/min/1.7 3 [facility] BUN/Creatinine Ratio 22 10 - 24 [facility] Sodium 142 134 - 144 mmol/L [facility] Potassium 3.8 3.5 - 5.2 mmol/L [facility] Chloride 102 96 - 106 mmol/L [facility] Bicarbonate (CO2) 23 20 - 29 mmol/L [facility] Calcium 9.3 8.6 - 10.2 mg/dL [facility] Total Protein 6.8 6.0 - 8.5 g/dL [facility] Albumin 4.2 3.7 - 4.7 g/dL [facility] Globulin 2.6 1.5 - 4.5 g/dL [facility] Total Bilirubin 0.8 0.0 - 1.2 mg/dL [facility] Alkaline Phosphatase 70 44 - 121 IU/L [facility] AST (SGOT) 33 0 - 40 IU/L [facility] ALT (SGPT) 43 0 - 44 IU/L [facility] 01/24/2025 9:29 AM EDT 01/24/2025 Con Rosa MD LAB BLOOD ORDERABLES Final Re sult [facility] [address] [place] [address] from Last 3 Months Insurance [facility] Care Teams Park Ranger Relationship Specialty Start Date End Date Bianka Gutierrez NP-C [address], [address] [place] [address] PCP - General Nurse Practitioner 08/30/20
--- OUTSIDE RECORDS SUMMARY | 2025-02-08 15:28 | XMS_ITS | Clinical Summary ---
Author Organization [facility] Address [address] [place] [address] Phone Care Team Providers Care Box Office Clerk Name Role Phone Bianka Gutierrez NP Primary Care Provider [phone] Allergies Active Allergy Reactions Criticality Noted Date [...] Active torsemide (DEMADEX) 5 mg tablet Take 2.5 tablets (12.5 mg total) by mouth 1 (one) time each day. 5 Active docusate sodium (COLACE) 100 mg capsule Take 1 capsule (100 mg total) by mouth 1 (one) time each day. Active MULTIVITAMIN ORAL Take 1 tablet by mouth 1 (one) time each day. Active potassium chloride (KLOR-CON M20) 20 mEq CR tablet Take 1 tablet (20 mEq total) by mouth 1 (one) time each day. Tablet may be swallowed whole (do not crush/chew/suck on) OR broken in half and each [...] (one) time each day. 90 tablet 3 5 Active metoprolol succinate (TOPROL-XL) 50 mg 24 hr tablet Take 1.5 tablets (75 mg total) by mouth 1 (one) time each day. Do not crush or chew. 90 tablet 2 5 Active apixaban (Eliquis) 5 mg tablet Take 1 tablet (5 mg total) by mouth 2 (two) times a day. 180 tablet 2 5 Active Active Problems Problem Noted Date Diagnosed Date Ventricular tachycardia ([facility] V24, [facility] V2 8) 06/05/2024 Assessment & Plan (06/05/2024 8:31 PM EST): Patient with episode of nonsustained ventricular tachycardia in November none since. Reported in January because there is interrogation scheduled. She said no palpitations no lightheadedness or dizziness. No further episodes since November of this year SSS (sick sinus syndrome) (CMS/HCC V24, CMS/HCC V28) 12/03/2023 Overview (11/18/2024): Assessment & Plan (11/18/2024 10:55 AM EDT): Patient underwent implantation of a Medtronic dual-chamber [...] pounds in one week. Assessment & Plan (11/18/2024 1:22 PM EDT): Patient has history of HFmrEF. Recent echocardiogram showing an EF of 45 to 50%. Patient does not present with any clinical symptoms of heart failure and appears euvolemic on physical examination. He will continue on his present dose of torsemide 10 mg once a day. Patient advised to seek emergency medical attention [...] and none since History of pacemaker 12/02/2023 Assessment & Plan (11/18/2024 10:55 AM EDT): Continue with remote monitoring and routine visits to our device clinic. S/P CABG x 3 02/05/2022 Overview (05/08/2024): [place] [facility] [place] with Jessica Martínez [place] [facility] [place] with Doreen Verde - Indications: [...] continue to monitor. Atherosclerosis of abdominal aorta ([facility] V24) 09/03/2021 Chronic kidney disease, stage 2 (mild) Overview (05/08/2024): stable GFR CKD (chronic kidney disease) stage 3, GFR 30-59 ml/min ([facility] V24, CMS/HCC V28) 09/03/2021 Diabetes mellitus with chron ic kidney disease ([facility] V24, [facility] V28) 09/03/2021 HLD (hyperlipidemia) 09/03/2021 Assessment & Plan (11/18/2024 10:55 AM EDT): Patient's last LDL cholesterol was 29. Continue statin as prescribed. Assessment & Plan (08/05/2024 9:46 AM EST): Patient continues on atorvastatin 40 mg daily. Update lipid panel. Orders: Lipid panel; Future Obesity 09/03/2021 Atrial fibrillation ([facility] V24, [facility] V28) 0 07/23/2021 Overview (11/18/2024): Assessment & Plan (11/18/2024 1:22 PM EDT): Patient is history of atrial fibrillation with intermittent atrial flutter. He remains asymptomatic from this and his heart rate is well-controlled. His THP2XN3-SZSg score is 6. He continues on Eliquis for anticoagulation and metoprolol for rate control. He denies any palpitations. Assessment & Plan (08/05/2024 9:46 AM EST): Patient with history of paroxysmal atrial fibrillation. ECG today showing underlying atrial flutter. QGD5NB1-KSFb score of 6, he continues on anticoagulation with Eliquis 5 mg twice daily and is tolerating this well. Orders: ECG 12 lead Assessment & Plan (06/05/2024 8:31 PM EST): History of tachybradycardia syndrome A-fib is rate controlled and anticoagulated pacemaker in place for bradycardia arrhythmia pacemaker show 1 episode of nonsustained VT Diabetes mellitus ([facility] V24, [facility] V28) 09/2021 Obstructive sleep apnea 07/23/2021 CAD [...] with routine medical care. Assessment & Plan (11/18/2024 12:05 PM EDT): Patient has history of coronary artery disease status post multiple stenting procedures in the past and CABG surgery in 2021. Nuclear stress test as outlined in detailed above. Reviewed with Dr. Carver. No changes when compared to previous nuclear stress test completed in the past. Patient is asymptomatic. He continues on cardioprotective medical therapy with aspirin, beta-samantha and statin. No additional testing necessary at this time. Continue with medical therapy as prescribed. I have reviewed with the patient the [...] all therapies as prescribed. Assessment & Plan (11/18/2024 1:22 PM EDT): Blood pressure under good control with a reading today of 98/60. He denies any lightheadedness or dizziness. No changes to his medical therapies at this time. Assessment & Plan (08/05/2024 9:46 AM EST): [...] and following up with routine medical care. Resolved Problems Problem Noted Date Diagnosed Date Resolved Date Pre-syncope 12/02/2023 11/18/2024 Orthostatic hypotension 12/02/2023 05/0 07/2024 Overview (05/08/2024): Last Assessment & Plan: Patient denies any issues with lightheadedness or dizziness. Blood pressure is well-controlled today. Edema 07/24/2022 11/18/2024 Overview (05/08/2024): Last Assessment & Plan: we [...] dose then we will check a Chem-7 Hypercholesterolemia 07/11/2020 025 Assessment & Plan (11/18/2024 1:22 PM EDT): Last LDL cholesterol 29. Continue with atorvastatin as prescribed. Encounters Date Type Department Care Team Description 01/13/2025 Telephone [facility] [address] [place] [address] Irene Reeves NP Weight Gain 01/07/2025 Telephone [facility] [address] [place] [address] Irene Reeves NP Results 11/18/2024 9:10 AM EDT Office Visit [facility] [address] [place] [address] Irene Reeves NP Coronary artery disease involving or[place]ar[place]iut coronary artery of or[place]ararmiut heart without angina pectoris (Primary Dx); Chronic heart failure with preserved ejection fraction (CMS/HCC V24, CMS/HCC V28); Atrial fibrillation, unspecified type (CMS/HCC V24, CMS/HCC V28); Primary hypertension; SSS (sick sinus syndrome) (CMS/HCC V24, CMS/HCC V28); Mixed hyperlipidemia; History of pacemaker; Hypercholesterolemia 11/12/2024 4:15 PM EDT Ancillary Procedure [facility] [address] [place] [address] 11/09/2024 2:30 PM EDT Ancillary Procedure [facility] [address] [place] [address] Encounter for adjustment or management of cardiac device from Last 3 Months Immunizations Name Administration [...] Sign Reading Time Taken Comments Blood Pressure 98/68 11/18/2024 8:53 AM EDT Pulse 72 11/18/2024 8:53 AM EDT Temperature - - Respiratory Rate - - Oxygen Saturation 98% 11/18/2024 8:53 AM EDT Inhaled Oxygen Concentration - - Weight 83 kg (183 lb) 11/18/2024 8:53 AM EDT Height 172.7 cm (5' 8 ) 11/18/2024 8:53 AM EDT Body Mass Index 27.83 11/18/2024 8:53 AM EDT Plan of Treatment Upcoming Encounters Date Type Department Care Team (Late st Contact Info) Description 05/23/2025 7:40 AM EST Office Visit [facility] [address] [place] [phone] Irene Reeves NP [address] [place] [address] [address] [place] [address] 11/14/2025 10:00 AM EDT Ancillary Procedure [facility] [address] [facility] [address] [place] [id number] Health Maintenance Due Date Last Done Comments Diabetes: Annual Foot Exam 10/26/1955 Diabetes: Annual Retina Eye Exam 10/26/1955 DTaP,Tdap,and Td Vaccines (1 - Tdap) 10/26/1962 Pneumococcal Vaccine: 50+ Years (1 of 2 - PCV) 10/26/1962 Zoster Vaccines (1 of 2) 10/26/1962 Falls Risk Assessment 06/26/2022 Medicare Annual Wellness Visit 06/26/2022 Social Influencers of Health Screening 06/26/2022 Diabetes: Annual Urine Albumin-Creatinine Ratio (uACR) 07/05/2022 Diabetes: Blood Sugar Control Test (HGBA1C) 07/05/2022 Depression Screening 07/21/2024 COVID-19 Vaccine (10 - Pfizer risk season) 2024 03/25/2024, 04/09/2023, 11/08/2022, Additional history exists Influenza Vaccine (#1) 2025 , 03/31/2023, 04/01/2022, Additional history exists Diabetes: Annual GFR (Glomerular Filtration Rate) 07/27/2025 07/27/2024, 07/27/2024, 01/12/2024, Additional history exists Hypertension/CHF/CAD Annual BMP Blood Test 07/27/2025 07/27/2024, 07/27/2024, 01/12/2024, Additional history exists Cholesterol Screening (Lipid Panel) 08/17/2029 08/17/2024 RSV Immunization Adult Patients Completed 03/25/2024 HIB [...] this topic Medical Devices Implanted Type Area Private Investigator Surveillance Device Identifier Shelf Expiration Date Model / Serial / Lot Medt-Card [place] Xt Dr Simms [id number] Implanted:09/19 by Mirna Church MD (Quantity not on file) Cardiac Pacemaker Left: Chest MEDTRONIC - CARDIAC RHYTH-CRDM BETI XT DR SIMMS [id number] / [id number] / Medt-Card Beti Xt Dr Simms [id number] Implanted:09/19 (Quantity not on file) Cardiac Pacemaker MEDTRONIC - CARDIAC RHYTH-CRDM BETI XT DR SIMMS / [id number] / Procedures Procedure Name Priority Date/Time Associated Diagnosis Comments ECG 12-LEAD Routine 11/18/2024 1:22 PM EDT Atrial fibrillation, unspecified type (CMS/HCC V24, CMS/HCC V28) CARDIAC DEVICE CHECK- REMOTE- MURJ Routine 11/12/2024 4:12 PM EDT CARDIAC DEVICE CHECK- IN CLINIC- MURJ Routine 11/09/2024 2:44 PM EDT Encounter for adjustment or management of cardiac device LIPID PANEL Routine 08/17/2024 9:57 AM EST Coronary artery disease involving or[place]ar[place]iut heart with angina pectoris, unspecified vessel or lesion type ([facility] V24) Hyperlipidemia, unspecified hyperlipidemia type from Last 3 Months or Most Recently Relevant to Health Maintenance Results * ECG 12 lead (11/18/2024 1:22 PM EDT) Ventricular Rate ECG 72 BPM GEMUSE Atrial Rate 72 BPM GEMUSE QRS Duration 114 ms GEMUSE Q-T Interval 358 ms GEMUSE QTc 392 ms GEMUSE R [place] 37 degrees GEMUSE T [place] -69 degrees GEMUSE ECG Interpretation Sinus rhythm with 1st degree A-V block Incomplete right bundle branch block ST and T wave abnormality, consider inferior ischemia ST and T wave abnormality, consider anterolateral ischemia Abnormal ECG When compared with ECG of 05-AUG-2024 08:32, Previous ECG has undetermined rhythm, needs review Incomplete right bundle branch block is now Present Criteria for Inferior infarct are no longer Present Confirmed by Shaquille CARVER JAMES ([id number]) on 11/18/2024 1:33:23 PM GEMUSE 11/18/2024 9:02 AM EDT 11/18/2024 1:33 PM EDT us Irene Reeves NP ECG ORDERABLES Edited Resul t - Final GEMUSE * Cardiac device check - Remote- MURJ (11/12/2024 4:12 PM EDT) Date Time Interrogation Session [id number] CV DEVICE CHECK Type Interrogation Session Remote CV DEVICE CHECK Implantable Pulse Generator Private Investigator Surveillance MDT CV DEVICE CHECK Implantable Pulse Generator Type IPG CV DEVICE CHECK Implantable Pulse Generator Model [place] XT DR MRI [id number] CV DEVICE CHECK Implantable Pulse Generator Serial Number [id number] CV DEVICE CHECK Implantable Pulse Generator Implant Date 20231010 CV DEVICE CHECK Battery Remaining Longevity 162.0 CV DEVICE CHECK Battery Voltage 3.110 CV D EVICE CHECK Battery CABLE OPERATOR Trigger 2.625 CV DEVICE CHECK Battery Status Middle of Service CV DEVICE CHECK Scottie Statistic RA Percent Paced 0.00 CV DEVICE CHECK Scottie Statistic RV Percent Paced 64.87 CV DEVICE CHECK Atrial Tachy Statistic AT/AF Jerome Percent 1.80 CV DEVICE CHECK Lead Channel Sensing Intrinsic Amplitude 0.250 CV DEVICE CHECK Lead Channel Setting Sensing Sensitivity 0.30 CV DEVICE CHECK Lead Channel Impedance Value 532 CV DEVICE CHECK Lead Channel Sensing Intrinsic Amplitude 20.625 CV DEVICE CHECK Lead Channel Setting Sensing Sensitivity 0.90 CV DEVICE CHECK Lead Channel Impedance Value 722 CV DEVICE CHECK Lead Channel Pacing Threshold Amplitude 0.625 CV DEVICE CHECK Lead Channel Pacing Threshold Pulse Width 0.4 CV DEVICE CHECK Lead Channel RV Pacing Threshold Date 2024-11-07 CV DEVICE CHECK Lead Channel Setting Pacing [...] 6 CV DEVICE CHECK Date of Service 2024-11-18 CV DEVICE CHECK Anatomical Region Laterality Modality Device Interroga tion 11/08/2024 12:2 2 AM EDT Impressions 11/12/2024 4:02 PM EDT Normal Remote: With Events * Normal Device Function * Events or Alerts: 50 AF Rate controlled/ Stable Jerome * Battery: OK, 13.50 yrs * Sensing, impedance and thresholds reviewed * Programmed parameters reviewed * Presenting rhythm reviewed * Heart Rate Histograms reviewed Narrative Procedure Note Mirna Church MD - 11/12/2024 IMPRESSION: Normal Remote: With Events * Normal Device Function * Events or Alerts: 50 AF Rate controlled/ Stable Jerome * Battery: OK, 13.50 yrs * Sensing, impedance and thresholds reviewed * Programmed parameters reviewed * Presenting rhythm reviewed * Heart Rate Histograms reviewed Mirna Church MD CV IMPLANTABLE CARDIAC DEV ICE PROCEDURES Final Result * CARDIAC DEVICE CHECK- [facility] CL[facility]- [facility] (11/09/2024 2:44 PM EDT) Date Time Interrogation Session [id number] CV DEVICE CHECK Implantable Pulse Generator Private Investigator Surveillance MDT CV DEVICE CHECK Implantable Pulse Generator Type IPG CV DEVICE CHECK Implantable Pulse Generator Model Beti XT DR MRI CV DEVICE CHECK Implantable Pulse Generator Serial Number [id number] CV DEVICE CHECK Implantable Pulse Generator Implant Date 20231010 CV DEVICE CHECK Battery Status Middle of Service CV DEVICE CHECK Scottie Statistic RA Percent Paced 0.00 CV DEVICE CHECK Scottie Statistic RV Percent Paced 52.70 CV DEVICE CHECK Atrial Tachy Statistic AT/AF Jerome Percent 3.50 CV DEVICE CHECK Lead Channel Sensing Intrinsic Amplitude 0.300 CV DEVICE CHECK Lead Channel Setting Sensing Sensitivity 0.30 CV DEVICE CHECK Lead Channel Impedance Value 589 CV DEVICE CHECK Lead Channel Sensing Intrinsic Amplitude 20.000 CV DEVICE CHECK Lead Channel Setting Sensing Sensitivity 0.90 CV DEVICE CHECK Lead Channel Impedance Value 703 CV DEVICE CHECK Lead Channel Pacing Threshold Amplitude 0.750 CV DEVICE CHECK Lead Channel Pacing Threshold Pulse Width 0.4 CV DEVICE CHECK Lead Channel RV Pacing Threshold Date 2024-11-09 CV DEVICE CHECK Lead Channel Setting Pacing Amplitude 2.000 CV DEVICE CHECK Lead Channel Setting Pacing Pulse Width 0.4 CV DEVICE CHECK Scottie Setting Mode (NBG Code) VVIR CV DEVICE CHECK Scottie Setting Lower Rate Limit 60 CV DEVICE CHECK Scottie Setting Maximum Sensor Rate 130 CV DEVICE CHECK Zone Setting Type Category AT/AF CV DEVICE CHECK Therapies All Rx Off CV DEVICE CHECK Zone Setting Status Monitor CV DEVICE CHECK Zone ID 2 CV DEVICE CHECK Zone Setting Type Category VT CV DEVICE CHECK Zone Setting Status Monitor CV DEVICE CHECK Zone ID 5 CV DEVICE CHECK Date of Service 2024-11-09 CV DEVICE CHECK Anatomical Region Laterality Modality Device Interroga tion 11/09/2024 Impressions 11/12/2024 4:02 PM EDT Normal In-Office: No Events * Normal Device Function * Alerts or events: None * Battery: MOS, 13.5 years * Sensing, impedance and thresholds reviewed and tested * Presenting Rhythm: FARMWORKER RICE 60's * Underlying Rhythm: VS 40's * Heart Rate Histograms reviewed * Pacing and Detection Parameters were evaluated Narrative Procedure Note Mirna Church MD - 11/12/2024 IMPRESSION: Normal In-Office: No Events * Normal Device Function * Alerts or events: None * Battery: MOS, 13.5 years * Sensing, impedance and thresholds reviewed and tested * Presenting Rhythm: FARMWORKER RICE 60's * Underlying Rhythm: VS 40's * Heart Rate Histograms reviewed * Pacing and Detection Parameters were evaluated us Order Referral Cardiovascular CV IMPLANTABLE CAR DIAC DEVICE PROCEDURES Final Result * (ABNORMAL) Lipid panel (08/17/2024 9:57 AM [...] - 08/18/2024 2:06 AM EST Performed at: 01 - [facility] [address] [id number] Forger Helper: Coral Phillips MD, Phone: [phone] us Emely Brooke NP LAB BLOOD ORDERABLES Final Res ult [facility] 1 from Last 3 Months or Most Recently Relevant to Health Maintenance Insurance [employer] - [place] MEDICARE ADVANTAGE Care Teams Box Office Clerk Relationship Specialty Start Date End Date Bianka Gutierrez NP [address] [place] [address] PCP - General Nurse Practitioner 06/04/24
--- OUTSIDE RECORDS SUMMARY | 2025-02-08 15:28 | XMS_ITS | Continuity of Care Document ---
Author Organization [facility] [address] [place] [address] Phone [phone] Care Team Providers Care Supervisor Dry Paste Name Role Phone Bianka Gutierrez N.P. Care Team Information [facility] [phone] Problems Active Problems Provider Date Essential hypertension [...] Social History Type Date Description Comments Sex Male Sex Unknown Lives With Spouse Occupation insurance account specialist Work Status Retired Tobacco Use Start: Unknown Never Smoked Cigarettes ETOH Use Never used alcohol Allergies and adverse reactions Description No Known Drug Allergies Medications Active Medications SIG Qnty Indications Order ing Provider Date Bcumvzete16jh Tablets 1 by mouth every day Daisy Weiss M.D. 12/17/2024 Onetouch VerioStrips use 1 strip to check glucose 1 time weekly DX:E11.9 50units E11.Hernan Weiss M.D. 09/11/2023 Onetouch Delica Plus Lancets Extra Fine 33GPlus 33G [facility] use one to test blood sugars once weekly DX: E11.9 50units E11.9 Daisy Weiss M.D. 09/11/2023 Pndrfsbvjhh2wq Tablets 1 by mouth every day Unknown Edvrfva6eb Tablets 1 by mouth twice a day Brian Cavazos Potassium ChlorideCrystals 20 meq qd Daisy Weiss M.D. Okgfiluhmnn721zy Tablets 1 tab by mouth every morning 90tabs Daisy Weiss M.D. Aspirin Ec Low Jsvh36vz Tablets 1 by mouth every day Daisy Weiss M.D. Rgnfze122wu Capsules 1 by mouth bid Daisy Weiss M.D. Multivitamin Adults 50+Adlt 50+ Tablets 1 by mouth every day Daisy Weiss M.D. Msynlar19ZI/Scoop Powder take daily Daisy Weiss M.D. Shdhzqcf7pb Tablets DR 1 by mouth every 3rd day Daisy Weiss M.D. Atorvastatin Wiikwgd77ue Tablets 1 by mouth every day Daisy Weiss M.D. Metoprolol Succinate ER50mg Tablets ER 24HR 1 1/2 tablets by mouth every day 90tabs Daisy Weiss M.D. Zyrtec Pcmmsxv21qx Tablets 1 by mouth every day at bedtime Daisy Wesis M.D. Flonase Allergy Mjnpxe65yzq/Act Suspension 1 pump both nostrils twice a day as needed 9.900ml Daisy Weiss M.D. Vital Signs Date Vital Result Comment 12/17/2024 9:10am BP Systolic 120 mmHg BP Diastolic 70 mmHg Heart Rate 75 /min Height 65 inches 5'5 Weight 187.12 lb BMI (Body Mass Index) 31.1 kg/m2 Results Test Acquired Date Facility Test Result H/L Range N ote Glucose Fingerstick 12/17/2024 Inhouse Glucose Fingerstick 96 Hemoglobin A1c 12/17/2024 Inhouse Hemoglobin A1c 5.8% Glucose Fingerstick 2023 Inhouse Glucose Fingerstick 85 [...] Date Location Provider Dx Diagnosis Office Visit 12/17/2024 9:00a Main Office Daisy Weiss M.D. 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 12/17/2024 I10 Essential (primary) hyperten sammy Daisy Weiss M.D. 12/17/2024 N18.30 Chronic kidney d isease, stage 3 unspecified Daisy Weiss M.D. 12/17/2024 I25.10 Atherosclerotic heart disease of [place] coronary artery without angina pectoris Daisy Weiss M.D. 12/17/2024 E11.21 Type 2 diabetes mellitus with diabetic nephropathy Daisy Weiss M.D. 12/17/2024 I12.9 Hypertensive chr onic kidney disease with stage 1 through stage 4 chronic kidney disease, or unspecified chronic kidney disease Daisy Weiss M.D. 12/17/2024 [address]68[address] ate NOS Daisy Weiss M.D. Plan of Treatment Future Appointment(s):* 06/29/2025 8:00 am - Daisy Weiss M.D. at Main Office 2023 - Daisy Weiss M.D.* E11.42 Type 2 diabetes mellitus with diabetic polyneuropathy * I10 Essential (primary) hypertension * N18.31 Chronic kidney disease, stage 3a Functional Status Description No Information Available Mental Status Description No Information Available Referrals Description No Information Available
--- OUTSIDE RECORDS SUMMARY | 2025-02-08 15:29 | XMS_ITS | Data Portability ---
Author Organization [place] - [facility], Allergy Address [address] [address] Care Team Providers Care Section Gang Name Role Phone BLAKE GREEN Primary Care Provider Assessment Encounter Date Assessment Date Assessment LastModified by Organization Details LastModified Time 01/19/2024 01/19/2024 Patient's hearing remains essentially stable but devices were reprogrammed anywhere the thresholds were 5 dB worse. Recommend following up in one year for their annual hearing aid fitting, sooner if any problems arise. [email or web address] Not available 01/19/2024 14:11:24 Plan of Treatment [...] ation record ed. [email or web address] Not Available 23:54:47 08/20/04/27/2019 audio gram No observ ation record ed. [email or web address] Not Available 23:55:59 03/09/2005/01/2022 imagi ng/di agnos tic resul t No [...] Name and Address Organization Details Recorded Time Bilateral tinnitus 51743257789 02 Active 2017 Tinnitus, bilateral ; Note: Date Diagnosed : 03/11/2018 11:09 AM (H93.13) Not Available [facility] 4 03:04:06 Snoring 44145714 Active 2017 Snoring; Note: Date Diagnosed : 03/11/2018 11:09 AM (R06.83) Not Available [facility] 4 03:04:05 Sensorine ural hearing loss of bilateral ears 523423625 Active 2017 Sensorine ural hearing loss, bilateral ; Note: Date Diagnosed : 03/11/2018 10:57 AM (H90.3) Not Available [facility] 4 03:04:05 Bleeding from nose 598663244 Active 2020 Epistaxis ; Note: Date Diagnosed : 09/15/2020 5:04 PM (R04.0) Not Available [facility] 4 03:04:04 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 Procedures Surgical History Date Name Laterality Status Provider Name and Address Organization Details Recorded Time 01/19/2024 Comp Audio with Tymps - 14360 & 14365 completed GREGORY WOLFE, [facility] [address] [facility], [place], [address], [facility] 01/19/2024 14:10:48 Imaging Results None recorded. Procedure Notes None recorded. Medical Equipment None Reported. Medications Name Sig Start Date Stop Date Status Note LastModified by Organization Details LastModified Time atorvasta tin 40 mg tablet active Medicatio n ID: [id number] Br and Name: atorvasta tin Send Method: E-Prescri bed Subs Allowed: subs OK Medica tionGener icName: atorvasta tin Not Available Not Available Not Available Toprol XL 100 mg tablet,ex tended release 09/15 completed Medicatio n ID: [id number] Du ration Value: 90 Brand Name: Toprol XL Send Method: E-Prescri bed Subs Allowed: subs OK Medica tionGener icName: Toprol XL Not Available Not Available Not Available torsemide 20 mg tablet active Medicatio n ID: [id number] Br and Name: torsemide Send Method: E-Prescri bed Subs Allowed: subs OK Medica tionGener icName: torsemide Not Available Not Available Not Available ciproflox acin 750 mg tablet TAKE 1 TABLET BY MOUTH TWICE A DAY FOR 7 DAYS active Not Available Not Available No t Available atorvasta tin 10 mg tablet 07/05 completed Medicatio n ID: [id number] Br and Name: atorvasta tin Send Method: E-Prescri bed Subs Allowed: subs OK Medica tionGener icName: atorvasta tin Not Available Not Available Not Available metoprolo l succinate ER 50 mg tablet,ex tended release 24 hr active Not Available Not Available Not Available warfarin 2.5 mg tablet 09/15 completed Medicatio n ID: [id number] Du ration Value: 90 Brand Name: warfarin Send Method: E-Prescri bed Subs Allowed: subs OK Medica tionGener icName: warfarin Not Available Not Available Not Available amlodipin e 2.5 mg tablet 09/15 completed Medicatio n ID: [id number] Du ration Value: 90 Brand Name: amlodipin e Send Method: E-Prescri bed Subs Allowed: subs OK Medica tionGener icName: amlodipin e Not Available Not Available Not Available amlodipin e 5 mg tablet 07/05 completed Medicatio n ID: [id number] Br and Name: amlodipin e Send Method: E-Prescri bed Subs Allowed: subs OK Medica tionGener icName: amlodipin e Not Available Not Available Not Available isosorbid e mononitra te ER 60 mg tablet,ex tended release 24 hr 07/05 completed Medicatio n ID: [id number] Br and Name: isosorbid e mononitra te Send Method: E-Prescri bed Subs Allowed: subs OK Medica tionGener icName: isosorbid e mononitra te Not Available Not Available Not Available potassium chloride 20 mEq oral packet active Not Available Not Available Not Available tamsulosi n 0.4 mg capsule 07/05 completed Medicatio n ID: [id number] Br and Name: tamsulosi n Send Method: [...] l tablet 07/05 completed Medicatio n ID: [id number] Br and Name: nitroglyc nicolasa Send Method: E-Prescri bed Subs Allowed: subs OK Specia l Instructi on: PLACE 1 TAB UNDER THE TONGUE EVERY 5 MINUTES NEEDED FOR CHEST PAIN. Med icationGe nericName : nitroglyc incolasa Not Available Not Available Not Available lisinopri l 30 mg tablet 07/05 completed Medicatio n ID: [id number] Br and Name: lisinopri l Send Method: E-Prescri bed Subs Allowed: subs OK Medica tionGener icName: lisinopri l Not Available Not Available Not Available allopurin ol 300 mg tablet active Not Available Not Available Not Available metformin ER 500 mg tablet,ex tended release 24 hr 07/05 completed Medicatio n ID: [id number] Br and Name: metformin Send Method: E-Prescri [...] 81 mg capsule active Medicatio n ID: [id number] Br and Name: aspirin S end Method: [...] Diagnosis Note [id number] [facility] of [address] [address] 01/19/2024 14:07:36 01/27/2024 20:44:08 Sensorineural hearing loss of bilateral ears [id number] H90.3 Health Concerns Section Related Observation LastModified by Organization Detai ls LastModified Time None Recorded Concern Status LastModified by Organization Details LastModified Time None Recorded Advance Directives Directive None Recorded Payers Insurance Date Sequence Insurance Name Policy Number Policy [place] Covered Member ID Machado Member ID Guarantor Name 01/27/2024 1 [facility]: MEDICARE PPO BLUE (MEDICARE REPLACEMENT PPO) [id number] Elbert Weber [id number] El[address] Tia Notes Date Note Type Note Provider Name and Address Organization Details Recorded Time 01/19/2024 text/html Patient returns for their annual fitting of amplification. Reviewed with patient the importance of ensuring that the devices are working to their best potential and to rule out any changes in hearing or need to reprogram the devices. The devices were previously programmed using the [employer] hearing aid analyzer and real-ear verification was not repeated today. The patient reported no specific concerns and reports satisfaction with use but his family reports that he struggles hearing them. His PCP has put him on Zyrtec and Flonase for allergies. The last time he saw his PCP (weeks ago), he was told he had a little fluid in the left ear. GREGORY WOLFE, [address],[place] [address], [place], [address], [facility] - [facility] 01/19/2024 14:11:51
== END 2025-02-08 14:58 | disposition home or self-care (01) ==
LOC: HO.HSMS 14:12
PROVIDERS: PCP Nurse Practitioner Primary Care; Visit Provider Psychiatry & Neurology Neurology
DX: G23.2 Striatonigral degeneration (principal); I95.1 Orthostatic hypotension; R26.9 Unspecified abnormalities of gait and mobility; G47.00 Insomnia, unspecified
CPT/HCPCS: 99214